=== PATIENT | male | born 1945 | race Caucasian/White ===

== ENCOUNTER 2021-07-12 09:08 | Outpatient (CLI) | payer MEDICARE, SELFPAY ==
--- NOTE | ~2021-07-12 | XR_ITS ---
EXAMINATION: XR abdomen/kub 1V INDICATION: Right flank pain TECHNIQUE: Supine views of the abdomen were obtained on 2 radiographs. COMPARISON: None FINDINGS: There is a 4 mm stone of the right kidney lower pole. Multiple stones are present in the lo wer pole of the left kidney. A 3 mm calcification projecting over the right sacrum could reflect athe rosclerosis versus ureteral stone. There are phleboliths in the pelvis. The visualized lung bases are clear. The bowel gas pattern is normal. 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 IMPRESSION: 1. Right pelvic calcification which could reflect calcified atherosclerosis versus right distal urete ral stone. 2. Bilateral nephrolithiasis. Reviewed, dictated and finalized at location A. IMPRESSION: 1. Right pelvic calcification which could reflect calcified atherosclerosis tania reshma right distal ureteral stone. 2. Bilateral nephrolithiasis.
== END 2021-07-12 09:09 | disposition home or self-care (01) ==
LOC: ANHIMG 09:21
PROVIDERS: Visit Provider Nurse Practitioner Adult Health
DX: R10.9 Unspecified abdominal pain (principal); N20.0 Calculus of kidney
CPT/HCPCS: 74018

== ENCOUNTER 2022-10-19 08:13 | Outpatient (CLI) | payer MEDICARE, SELFPAY ==
--- NOTE | ~2022-10-19 | XR_ITS ---
XR abdomen obstructive series DATE: 10/19/2022 08:32 INDICATION: Right-sided abdominal pain TECHNIQUE: Supine and upright AP views of the abdomen COMPARISON: 07/12/2021 supine AP views of the abdomen FINDINGS: Bilateral nephrolithiasis. No visceromegaly is evident. The psoas shadows are intact. No ev idence of bowel obstruction. Status post laminectomy and bilateral posterior surgical fusion with pedicle screws and rods at L3-L5 . Status post right total hip arthroplasty. 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 Osteopenia. IMPRESSION: Bilateral nephrolithiasis Reviewed, dictated and finalized at Location A. Reviewed, dictated and finalized at location B. 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
[2022-10-19 19:21] LABS: Hematocrit 48.3 % (42.0-52.0); Hemoglobin 15.6 g/dL (14.0-18.0); Mean Corpuscular HGB Conc 32.3 g/dl (32-36); Mean Corpuscular Hemoglobin 30.5 pg (26-34); Mean Corpuscular Volume 94.3 fl (80-100); Mean Platelet Volume 10.4 fl (7.4-10.4); Platelet Count Result 232 k/mm3 (150-375); Red Blood Count 5.12 M/mm3 (4.6-6.20); Red Cell Distribution Width 13.3 % (11.5-14.5); White Blood Count 6.7 K/mm3 (4.5-10.0)
[2022-10-19 20:11] LABS: Alanine Aminotransferase 37 U/L (6-50); Albumin Level 4.3 g/dL (3.5-5.1); Alkaline Phosphatase 61 U/L (38-126); Anion Gap 7 mmol/L (8-16); Aspartate Amino Transferase 58 U/L (17-59); Blood Urea Nitrogen 16 mg/dL (9-20); Calcium 8.8 mg/dL (8.4-10.2); Carbon Dioxide 31 mmol/L (22-30); Chloride 101 mmol/L (98-107); Cholesterol 178 mg/dL (0-200); Estimated Glomerular Filt Rate > 60; Glucose 94 mg/dL (65-110); HDL Direct 42 mg/dL; Potassium 4.1 mmol/L (3.4-5.0); Sodium 139 mmol/L (137-145); Triglycerides 88 mg/dL (<150)
[2022-10-19 20:22] LABS: LDL Cholesterol Direct 105 mg/dL
== END 2022-10-19 08:14 | disposition home or self-care (01) ==
LOC: ANHBWCIMG 08:18
PROVIDERS: PCP Family Medicine; Visit Provider Family Medicine
DX: N20.0 Calculus of kidney (principal); R10.9 Unspecified abdominal pain; K21.9 Gastro-esophageal reflux disease without esophagitis; E66.3 Overweight
CPT/HCPCS: 36415; 74019; 80053; 80061; 85027

== ENCOUNTER 2023-02-06 09:27 | Outpatient (CLI) | payer MEDICARE, SELFPAY ==
[2023-02-06 19:29] LABS: Alanine Aminotransferase 33 U/L (6-50); Albumin Level 4.5 g/dL (3.5-5.1); Alkaline Phosphatase 71 U/L (38-126); Aspartate Amino Transferase 56 U/L (17-59); Bilirubin,Total 0.7 mg/dL (0.2-1.3)
== END 2023-02-06 09:28 | disposition home or self-care (01) ==
PROVIDERS: PCP Family Medicine; Visit Provider Family Medicine
DX: B35.1 Tinea unguium (principal)
CPT/HCPCS: 36415; 80076

== ENCOUNTER 2023-10-29 10:36 | Outpatient (CLI) | payer MEDICARE, SELFPAY ==
[2023-10-29 19:44] LABS: Hematocrit 49.2 % (42.0-52.0); Hemoglobin 15.8 g/dL (14.0-18.0); Mean Corpuscular HGB Conc 32.1 g/dl (32-36); Mean Corpuscular Hemoglobin 29.9 pg (26-34); Mean Platelet Volume 10.6 fl (7.4-10.4); Platelet Count Result 217 k/mm3 (150-375); Red Blood Count 5.29 M/mm3 (4.6-6.20); Red Cell Distribution Width 13.2 % (11.5-14.5)
[2023-10-29 20:41] LABS: Alanine Aminotransferase 39 U/L (6-50); Albumin Level 4.3 g/dL (3.5-5.1); Alkaline Phosphatase 64 U/L (38-126); Anion Gap 8 mmol/L (8-16); Aspartate Amino Transferase 53 U/L (17-59); Bilirubin,Total 1.1 mg/dL (0.2-1.3); Blood Urea Nitrogen 14 mg/dL (9-20); Calcium 9.4 mg/dL (8.4-10.2); Carbon Dioxide 28 mmol/L (22-30); Chloride 103 mmol/L (98-107); Cholesterol 190 mg/dL (0-200); Estimated Glomerular Filt Rate > 60; Glucose 98 mg/dL (65-110); HDL Direct 45 mg/dL; Potassium 4.8 mmol/L (3.4-5.0); Sodium 139 mmol/L (137-145); Triglycerides 82 mg/dL (<150)
[2023-10-29 20:51] LABS: LDL Cholesterol Direct 119 mg/dL
== END 2023-10-29 10:37 | disposition home or self-care (01) ==
PROVIDERS: PCP Nurse Practitioner Adult Health; Visit Provider Family Medicine
DX: B35.1 Tinea unguium (principal); K21.9 Gastro-esophageal reflux disease without esophagitis; R10.9 Unspecified abdominal pain; R19.7 Diarrhea, unspecified; Z00.00 Encounter for general adult medical examination without abnormal findings; Z79.899 Other long term (current) drug therapy; B35.3 Tinea pedis
CPT/HCPCS: 36415; 80053; 80061; 85027

== ENCOUNTER 2024-04-21 10:24 | Outpatient (CLI) | payer MEDICARE, SELFPAY ==
[2024-04-21 18:49] LABS: Basophils Absolute Auto 0.1 K/mm3 (0.0-0.1); Eosinophils Absolute Auto 0.2 K/mm3 (0-0.3); Eosinophils Percent Auto 2.7 % (0-4.4); Hematocrit 51.7 % (42.0-52.0); Hemoglobin 16.7 g/dL (14.0-18.0); Immature Granulocyte Absolute 0.03 K/mm3 (0.00-0.031); Immature Granulocyte Percent A 0.4 % (0-0.5); Lymphocytes Percent Auto 26.5 % (18.3-44.2); Mean Corpuscular HGB Conc 32.3 g/dl (32-36); Mean Corpuscular Volume 92.8 fl (80-100); Mean Platelet Volume 10.3 fl (7.4-10.4); Monocytes Absolute Auto 0.5 K/mm3 (0.1-0.6); Monocytes Percent Auto 7.4 % (2.6-8.5); Neutrophils Absolute Auto 4.2 K/mm3 (1.3-6.7); Platelet Count Result 241 k/mm3 (150-375); Red Blood Count 5.57 M/mm3 (4.6-6.20); Red Cell Distribution Width 13.6 % (11.5-14.5); White Blood Count 6.8 K/mm3 (4.5-10.0)
[2024-04-21 19:02] LABS: Alanine Aminotransferase 35 U/L (6-50); Albumin Level 4.4 g/dL (3.5-5.1); Alkaline Phosphatase 64 U/L (38-126); Anion Gap 8 mmol/L (4-12); Aspartate Amino Transferase 73 U/L (17-59); Bilirubin,Total 1.1 mg/dL (0.2-1.3); Blood Urea Nitrogen 15 mg/dL (9-20); Calcium 9.4 mg/dL (8.4-10.2); Carbon Dioxide 27 mmol/L (22-30); Chloride 104 mmol/L (98-107); Estimated Glomerular Filt Rate > 60; Glucose 126 mg/dL (65-110); Sodium 139 mmol/L (137-145)
[2024-04-21 19:46] LABS: Prostate Specific Antigen 1.5 ng/mL (< OR = 4.0)
== END 2024-04-21 10:25 | disposition home or self-care (01) ==
LOC: ANHBWCLAB 10:26
PROVIDERS: PCP Family Medicine; Visit Provider Family Medicine
DX: K21.9 Gastro-esophageal reflux disease without esophagitis (principal); M19.90 Unspecified osteoarthritis, unspecified site; Z12.5 Encounter for screening for malignant neoplasm of prostate
CPT/HCPCS: 36415; 80053; 84153; 85025; G0103

== ENCOUNTER 2024-04-24 10:15 | Outpatient (CLI) | payer MEDICARE, SELFPAY ==
[2024-04-24 11:05] LABS: Alanine Aminotransferase 37 U/L (6-50); Albumin Level 4.3 g/dL (3.5-5.1); Alkaline Phosphatase 61 U/L (38-126); Aspartate Amino Transferase 37 U/L (17-59); Bilirubin,Total 1.1 mg/dL (0.2-1.3)
[2024-04-24 11:52] LABS: Hemoglobin A1C 5.1 % (<5.7)
== END 2024-04-24 10:16 | disposition home or self-care (01) ==
PROVIDERS: PCP Family Medicine; Visit Provider Family Medicine
DX: R73.9 Hyperglycemia, unspecified (principal); R74.01 Elevation of levels of liver transaminase levels
CPT/HCPCS: 36415; 80076; 83036

== ENCOUNTER 2024-06-17 15:15 | Outpatient (CLI) | payer MEDICARE, SELFPAY ==
[2024-06-17 19:34] LABS: Anion Gap 9 mmol/L (4-12); Blood Urea Nitrogen 17 mg/dL (9-20); Calcium 9.3 mg/dL (8.4-10.2); Carbon Dioxide 29 mmol/L (22-30); Chloride 100 mmol/L (98-107); Estimated Glomerular Filt Rate > 60; Glucose 103 mg/dL (65-110); Potassium 4.6 mmol/L (3.4-5.0); Sodium 138 mmol/L (137-145)
== END 2024-06-17 15:16 | disposition home or self-care (01) ==
PROVIDERS: PCP Nurse Practitioner Adult Health; Visit Provider Nurse Practitioner Adult Health
DX: E86.0 Dehydration (principal)
CPT/HCPCS: 36415; 80048

== ENCOUNTER 2024-07-28 12:00 | Outpatient (CLI) | payer MEDICARE, SELFPAY ==
[2024-07-28 19:11] LABS: Alanine Aminotransferase 46 U/L (6-50); Albumin Level 4.1 g/dL (3.5-5.1); Alkaline Phosphatase 64 U/L (38-126); Aspartate Amino Transferase 80 U/L (17-59); Bilirubin,Total 0.9 mg/dL (0.2-1.3)
== END 2024-07-28 12:01 | disposition home or self-care (01) ==
PROVIDERS: PCP Nurse Practitioner Adult Health; Visit Provider Family Medicine
DX: R74.01 Elevation of levels of liver transaminase levels (principal)
CPT/HCPCS: 36415; 80076

== ENCOUNTER 2024-08-05 07:45 | Outpatient (CLI) | payer MEDICARE, SELFPAY ==
--- NOTE | ~2024-08-05 | US_ITS ---
Limited Abdominal Sonogram: Real-time sonographic imaging of the right upper quadrant was performed. Clinical History: Elevated transaminase levels Findings: The liver appears echogenic, with no evidence of mass lesion or bile duct dilatation. Main portal vein demonstrates normal direction of flow. The gallbladder is partially distended, and appea rs normal with no evidence of gallstone or wall thickening. The common bile duct measures 4 mm. The visualized pancreas, aorta, and IVC are unremarkable. Large right upper pole renal cyst incidentally noted. Impression: Diffuse fatty infiltration of liver. Reviewed, dictated and finalized at location . Impression: Diffuse fatty infiltration of liver.
== END 2024-08-05 07:46 | disposition home or self-care (01) ==
LOC: MICIMG 07:47
PROVIDERS: PCP Family Medicine; Visit Provider Family Medicine
DX: R74.01 Elevation of levels of liver transaminase levels (principal); K76.0 Fatty (change of) liver, not elsewhere classified
CPT/HCPCS: 76705

== ENCOUNTER 2025-04-22 08:06 | Outpatient (CLI) | payer MEDICARE, SELFPAY ==
--- OUTSIDE RECORDS SUMMARY | 2025-04-22 08:16 | XMS_ITS | Encounter Summary ---
Author Organization [facility] Address [address] [facility] [place] [address] Phone Care Team Providers Care Cold Storage Worker Name Role Phone Kandis Alejandro MD Primary Care Provider Reason for Visit * Reason Onset Date Comments Medication Refill Medication Refill 06/25/2020 Encounter Details Date Type Department Care Team (Late st Contact Info) Description 06/21/2020 Refill [facility] - Primary Care - [place] [address] [place] [address] Kandis Alejandro MD [address] [place] [address] Medication Refill; Medication Refill Social History Tobacco Use Types Packs/Day Years Used Date Smoking Tobacco: Former Cigarettes Q uit: 02/04/1960 Smokeless Tobacco: Never Comments:Social smoker Alcohol Use Standard Drinks/Week Comments Yes 5 (1 standard drink = 0.6 oz pur e alcohol) wine every evening PHQ-2 Answer Date Recorded Total Score - Questions 1-9 0 05/13 Sex and Gender Information Value Date Recorded Sex Assigned at Not on file Legal Sex Male 11:00 PM CDT Gender Identity Not on file Sexual Orientation Not on file 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 No / Unsure 05/31/2020 11:14 AM CDT documented as of this encounter Miscellaneous Notes * Telephone Encounter - Karolina Harden RN - 06/25/2020 3:44 PM CDT Called patient- patient takes Sonata, not Ambien. Called [place] pharmacy to discontinue Ambien. Order for Sonata pended to you. * Telephone Encounter - Kandis Alejandro MD - 06/25/2020 3:15 PM CDT If patient is taking sonAta, discontinue Ambien. Please check with patient. * Telephone Encounter - Ananya Corona, LYUBOV - 06/25/2020 10:49 AM CDT Ambien CR is not on patient's formulary. Please send an alternative or try prior auth * Telephone Encounter - Renetta Perea - 06/23/2020 4:06 PM CDT Please review, Ambien was ordered however, I did not see it on the patients active medication list. I did see the patient was on Sonata I wasn't sure if this was a mistake. I went ahead and pended the Ambien please review and sign if appropriate. Thank you documented in this encounter Plan of Treatment Not on file documented as of this encounter Visit Diagnoses Diagnosis Insomnia, unspecified type documented in this encounter Additional Health Concerns Infection Onset Date Last Indicated Resolved Time COVID - 19 12/06/2021 12/07/2021 12/08/2021 9:00 AM CREDIT ADVISOR COVID - 19 Confirmed 12/07/2021 12/07/2021 022 12:16 AM CREDIT ADVISOR Assessment Noted Time PHQ-9 Depression Total Score: 0 05/31/20 20 11:00 AM CDT documented as of this encounter Care Teams Cold Storage Worker Relationship Specialty Start Date End Date Kandis Alejandro MD PCP - General Family Medicine 02/21/16 03/18/23 documented as of this encounter
--- OUTSIDE RECORDS SUMMARY | 2025-04-22 08:16 | XMS_ITS | Referral Summary ---
Author Organization [address] Address [address] [place] [id number] Care Team Providers Care Data Acquisition Technician Name Role Phone Terry Neri MD Primary Care Provider [phone] Allergies Active Allergy Reactions Criticality Noted Date Comments Oxycodone-Acetaminop hen Other (See comments) Medium Reaction: FEELS FUNNY, Medications zaleplon (SONATA) 5 mg capsule Take 1 capsule (5 mg total) by mouth nightly 9 Active multivitamin tablet Take 1 tablet by mouth Active fluticasone propionate (FLONASE) 50 mcg/actuation nasal spray Administer 2 sprays into affected nostril(s) daily [address] (NexIUM) 20 mg capsule Take 1 capsule (20 mg total) by mouth daily 9 Active aspirin-calcium carbonate 81 mg-300 mg calcium(777 mg) tablet Take 81 mg by mouth daily Active clindamycin (CLEOCIN T) 1 % external solution APPLY 2 DROPS DAILY TO PROCEDURE SITE 3 Active Active Problems Problem Noted Date Diagnosed Date IFG (impaired fasting glucose) 05/31/2020 Obesity (BMI 30.0-34.9) 03/18/2019 Longo's esophagus 03/03/2019 Erectile dysfunction 05/29/2017 Insomnia 05/29/2017 PVC's (premature ventricular contractions) 02/07 Gastroesophageal reflux disease with esophagitis 05/16/2016 Hiatal hernia 05/16/2016 Over weight 05/16/2016 Social History Tobacco Use Types Packs/Day Years Used Date Smoking Tobacco: Former Personal Safety Answer Date Recorded Getting School Help Needed Not on file 11/02 Sex and Gender Information Value Date Recorded Sex Assigned at Not on file Legal Sex 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 Gender Identity Not on file Sexual Orientation Not on file Last Filed Vital Signs Vital Sign Reading Time Taken Comments Blood Pressure 120/78 07/05/2023 5:48 PM CDT Pulse 88 07/05/2023 5:48 PM CDT Temperature 36.3 C (97.4 F) 07/05/2023 5:48 PM CDT Respiratory Rate 18 07/05/2023 5:48 PM CDT Oxygen Saturation 95% 07/05/2023 5:48 PM CDT Inhaled Oxygen Concentration - - Weight 90.7 kg (200 lb) 07/05/2023 5:48 PM CDT Height 177.8 cm (5' 10) 07/05/2023 5:48 PM CDT Body Mass Index 28.7 07/05/2023 5:48 PM CDT Plan of Treatment Not on file Insurance MEDICARE [facility] MEDICARE [facility] Care Teams Data Acquisition Technician Relationship Specialty Start Date End Date Terry Neri MD PCP - General Family Practice 07/05/23
--- OUTSIDE RECORDS SUMMARY | 2025-04-22 08:16 | XMS_ITS | Clinical Summary ---
Author Organization [address] Address [address] [place] [id number] Care Team Providers Care Shift Production Supervisor Name Role Phone Terry Neri MD Primary Care Provider [phone] Allergies Active Allergy Reactions Criticality Noted Date [...] on file Legal Sex Male 10:00 AM CAUSTIC OPERATOR Gender Identity Not on file Sexual Orientation Not on file Obstetrics History Last Filed Vital Signs Vital Sign Reading [...] 07/05/2023 5:48 PM CDT Plan of Treatment Health Maintenance Due Date Last Done Comments Depression Screening 1945 Fall Risk Assessment 1945 Hepatitis B Screening 1962 Well Visit 65+ 2009 DTaP/Tdap/Td Vaccine (2 - Td or Tdap) 07/13/202111/2010 Influenza Vaccine (Season Ended) 2025 12/16/19 20, 09/12/2009 Pneumococcal vaccine 65+ Completed 05/29/2017, 03/13 Zoster Vaccine Completed 04/15/2020, 12/16/2019 Insurance MEDICARE [facility] MEDICARE [facility] Care Teams Shift Production Supervisor Relationship Specialty Start Date End Date Terry Neri MD PCP - General Family Practice 07/05/23
--- OUTSIDE RECORDS SUMMARY | 2025-04-22 08:16 | XMS_ITS | Clinical Summary ---
Author Organization [facility] Address [address], [address] [address] Phone Care Team Providers Care Snag Grinder Name Role Phone Unavailable Primary Care Provider Unavailabl e Allergies Active Allergy Reactions Criticality Noted Date Comments Oxycodone-Acetaminop hen Other (see Comments) Medium FEELS FUNNY, anxiety Medications Aspirin 81 MG Tablet Take 81 mg by mouth daily. Active Multiple Vitamin (MULTI-VITAMIN) Tablet Take 1 Tab by mouth. Active Probiotic Product (PROBIOTIC COLON SUPPORT PO) Take 1 Tab by mouth daily. Active esomeprazole (NEXIUM) 20 MG CAPSULE DELAYED RELEASEIndicatio ns:Gastroesophag eal reflux disease with esophagitis Take 1 Cap by mouth daily. 90 Cap 1 03/18/2019 Active Doxylamine Succinate, Sleep, (UNISOM PO) Take by mouth. Active zaleplon (SONATA) 5 MG Capsule Take 5 mg by mouth nightly as needed. Active Active Problems Problem Noted Date Diagnosed Date Bilateral nephrolithiasis 06/07/2021 Intermittent diarrhea 06/07/2021 Polyp of colon 03/08/2021 IFG (impaired fasting glucose) 05/31/2020 Obesity (BMI 30.0-34.9) 03/18/2019 Insomnia 05/29/2017 Erectile dysfunction 05/29/2017 PVC's (premature ventricular contractions) 02/07 Gastroesophageal reflux disease with esophagitis 05/16/2016 Hiatal hernia 05/16/2016 Longo's esophagus Resolved Problems Problem Noted Date Diagnosed Date Resolved Date Fatigue 02/07/2017 03/19/2018 Immunizations Immunization Administration Dates Next Due Covid-19, Mrna, Lnp-s, Pf, 30 Mcg/0.3 Ml Dose (Parul boswell) 02/01/2021,01/11/2021 Influenza Vaccine 09/12/2009 Influenza Vaccine, MDCK,quadrivalent, pres free 12/16/2019 Pneumococcal Vaccine - 13 Valent 05/29/2017 Pneumococcal Vaccine Adult - 23 Valent 1 Pneumococcal Vaccine, Unspecified Formulation TDAP Vaccine 07/13/2011 Zoster Vaccine Recombinant 04/15/2020,12/16/2019 Family History Medical History Relation Name Comments Cancer Father bone Diabetes Mother Hypertension Mother Osteoarthritis Mother Relation Name Status Comments Father Mother Social History Tobacco Use Types Packs/Day Years Used Date Smoking Tobacco: Former Cigarettes Q uit: 02/04/1960 Smokeless Tobacco: Current Tobacco Cessation:Ready to Q uit: No; Counseling Given: No Comments:Pt states he chews on a cigar but doesnt smoke, Similar to Chew tobacco Alcohol Use Standard Drinks/Week Comments Yes 5 (1 standard drink = 0.6 oz pur e alcohol) wine every evening PHQ-2 Answer Date Recorded Total Score - Questions 1-9 0 05/13 Sexually Active Control Partners Comments Yes Sex and Gender Information Value Date Recorded Sex Assigned at Not on file Legal Sex Male 11:00 PM CDT Gender Identity Not on file Sexual Orientation Not on file 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 Not on file Not on file Last Filed Vital Signs Vital Sign Reading Time Taken Comments Blood Pressure 120/60 06/06/2022 8:28 AM CDT Pulse 65 06/06/2022 8:28 AM CDT Temperature 36.2 C (97.2 F) 06/06/2022 8:28 AM CDT Respiratory Rate 18 06/06/2022 8:28 AM CDT Oxygen Saturation 97% 06/06/2022 8:28 AM CDT Inhaled Oxygen Concentration - - Weight 96.2 kg (212 lb) 06/06/2022 8:28 AM CDT Height 177.8 cm (5' 10) 06/06/2022 8:28 AM CDT Body Mass Index 30.42 06/06/2022 8:28 AM CDT Plan of Treatment Health Maintenance Due Date Last Done Comments Hepatitis C Virus (HCV) Screening 1945 Cologuard 1989 Immunochemical Fecal Occult Blood 1989 Respiratory Syncytial Virus (RSV) Immunization (Adult) (1 - 1-dose 75+ series) 2019 Td Immunization Every 10 Years (Adults With 1 Tdap) 07/13/2021 07/13/2011 SARS-COV-2 Immunization ( season) 2024 05/25/2022, 08/16/2021, 02/01/2021, Additional history exists Influenza Immunization (Season Ended) 2025 12/16/2019, 09/12/2009 Colonoscopy 02/07/2026 02/08/2016, 11/23/2009 Colorectal Cancer Screening 02/07/2026 Pneumococcal Immunization (50+ years) Completed 05/29/2017, 04/04/2011, 03/12/2011 Pneumococcal Immunization Combined Discontinued 05/29/2017, 04/04/2011, 03/12/2011 Zoster Immunization Completed 04/15/2020, 0 Hepatitis B Immunization Aged Out No longer eligible based on patient's age to complete this topic Human Papillomavirus (HPV) Immunization Aged Out No longer eligible based on patient's age to complete this topic Meningococcal Immunization (ACWY) Aged Out No longer eligible based on patient's age to complete this topic Rotavirus Immunization Aged Out No lo nger eligible based on patient's age to complete this topic Procedures Procedure Name Priority Date/Time Associated Diagnosis Comments COLONOSCOPY Routine 11/23/2009 from Last 3 Months or Most Recently Relevant to Health Maintenance Results * COLONOSCOPY (11/23/2009) us Duong Eduardo MD PROCEDURE/MINOR SURGICAL ORDE KIRBY Final Result from Last 3 Months or Most Recently Relevant to Health Maintenance Insurance MEDICARE [facility]
--- OUTSIDE RECORDS SUMMARY | 2025-04-22 08:16 | XMS_ITS | Clinical Summary ---
Author Organization [facility]To Address [address] [place] [address] Care Team Providers Care Air Brake Operator Name Role Phone Unavailable Primary Care Provider Unavailabl e Source Comments [facility],non-owned Affiliates and Associated Physician Practices is amultiple site organization consisting of ambulatory clinics and hospital sitesin [place], [place], [place] and [place]. This disclosure is being madepursuant to the Care Everywhere program and may not contain all information available regarding this patient. Last updated 18.[facility] Allergies No known active allergies Medications * Be aware that medications may not be up to date on this document. Alwaysverify current medications with the patient. aspirin (ASPIRIN LOW DOSE) 81 MG tablet Take 81 mg by mouth once daily Active esomeprazole (NEXIUM) 20 MG capsule Take 20 mg by mouth once daily Active Wheat Dextrin (BENEFIBER) powder Take by mouth once daily Active Multiple Vitamin (MULTI-VITAMIN) TABS Take 1 tablet by mouth Active Active Problems Problem Noted Date Diagnosed Date Longo's esophagus 03/03/2019 Erectile dysfunction 05/29/2017 Insomnia 05/29/2017 PVC's (premature ventricular contractions) 02/07 Gastroesophageal reflux disease with esophagitis 05/16/2016 Hiatal hernia 05/16/2016 Over weight 05/16/2016 Social History Tobacco Use Types Packs/Day Years Used Date Smoking Tobacco: Never Assessed Sex and Gender Information Value Date Recorded Sex Assigned at Not on file Legal Sex Male 7:14 PM CDT Gender Identity Not on file Sexual Orientation Not on file Last Filed Vital Signs Vital Sign Reading Time Taken Comments Blood Pressure 118/74 03/03/2019 2:25 PM CDT Pulse 86 03/03/2019 2:25 PM CDT Temperature 36.7 C (98 F) 03/03/2019 2:25 PM CDT Respiratory Rate 18 03/03/2019 2:25 PM CDT Oxygen Saturation 94% 03/03/2019 2:25 PM CDT Inhaled Oxygen Concentration - - Weight 90.7 kg (200 lb) 03/03/2019 2:25 PM CDT Height 179.1 cm (5' 10.5) 03/03/2019 2:25 PM CD T Body Mass Index 28.29 03/03/2019 2:25 PM CDT Plan of Treatment Health Maintenance Due Date Last Done Comments DTAP/TDAP/TD VACCINES (1 - Tdap) 1963 PNEUMOCOCCAL VACCINE 50+ (1 of 1 - PCV) 1994 ZOSTER VACCINE (1 of 2) 1994 Respiratory Syncytial Virus (RSV) Vaccine Pt: or over 60 yrs (1 - 1-dose 75+ series) 2019 COVID-19 VACCINE ( - 2023-2 5 season) 2024 DEPRESSION SCREENING 11/12/2024 INFLUENZA VACCINE (Season Ended) 2025 09/12/20 09 HEPATITIS B VACCINE Aged Out No longe r eligible based on patient's age to complete this topic HIB VACCINE Aged Out No longer eligi ble based on patient's age to complete this topic HPV VACCINE Aged Out No longer eligi ble based on patient's age to complete this topic MENINGOCOCCAL (Group B) VACC INE SHARED DECISION-MAKING Aged Out No longer eligibl e based on patient's age to complete this topic MENINGOCOCCAL GROUPS A/C/Y/W VACCINE Aged Out No longer eligible b ased on patient's age to complete this topic Insurance MEDICARE [facility] MEDICARE [facility] [employer]
[2025-04-22 09:00] LABS: Hematocrit 48.2 % (42.0-52.0); Hemoglobin 15.9 g/dL (14.0-18.0); Mean Corpuscular Volume 90.9 fl (80-100); Mean Platelet Volume 9.9 fl (7.4-10.4); Platelet Count Result 223 k/mm3 (150-375); Red Cell Distribution Width 13.2 % (11.5-14.5); White Blood Count 7.3 K/mm3 (4.5-10.0)
[2025-04-22 09:17] LABS: Alanine Aminotransferase 40 U/L (6-50); Albumin Level 4.2 g/dL (3.5-5.1); Alkaline Phosphatase 64 U/L (38-126); Aspartate Amino Transferase 43 U/L (17-59); Bilirubin,Total 0.9 mg/dL (0.2-1.3); Cholesterol 187 mg/dL (0-200); HDL Direct 49 mg/dL; Triglycerides 89 mg/dL (<150)
[2025-04-22 09:27] LABS: LDL Cholesterol Direct 107 mg/dL
[2025-04-22 09:55] LABS: Vitamin D 25 Hydroxy 35.8 ng/mL
== END 2025-04-22 08:07 | disposition home or self-care (01) ==
PROVIDERS: PCP Family Medicine; Visit Provider Family Medicine
DX: R74.01 Elevation of levels of liver transaminase levels (principal); Z79.899 Other long term (current) drug therapy; K21.9 Gastro-esophageal reflux disease without esophagitis; Z00.00 Encounter for general adult medical examination without abnormal findings; R63.5 Abnormal weight gain
CPT/HCPCS: 36415; 80061; 80076; 82306; 82607; 84443; 85027

== ENCOUNTER 2025-05-19 04:02 | Inpatient (IN) | payer MEDICARE, SELFPAY ==
[2025-05-19] VITALS (48 sets, daily range): BP systolic 132–204; BP diastolic 70–98; PULSE 50–78; RESP 15–23; TEMP 36.6–38.1; O2SAT 93–98; BMI 30.6
--- NOTE | 2025-05-19 | ECHO_ITS ---
Patient Info Name: Harry Pathak Age: 80 years : 1945 Gender: Male Ht: 70 in Wt: 213 lbs BSA: 2.21 m2 HR: 58 bpm BP: 132 / 76 mmHg Heart Rhythm: Sinus Rhythm Technical Quality: Fair Exam Date: 05/19/2025 3:19 PM Patient Status: I Admit Date: 05/19/2025 Exam Type: CA echo dop color flow w con Complete two-dimensional, color flow and Doppler transthoracic echocardiogram is performed with contrast to opacify the left ventricle and to improve the deliniation of the left ventricle endocardial borders. Staff Referring Physician: Samantha Kelly Solar Systems Designer: Jen Marks Attending Provider: Eddie Dan Contrast/Agitated Saline Contrast/Ag. Saline: Definity Amount: 3.00 ml Administered By: Jen Marks Existing IV Access: Yes IV Access Condition: patent with no signs of infiltration Summary 1. Definity contrast administered improved wall motion interpretation. 2. Left ventricular chamber dimension is normal. 3. Left ventricular systolic function is normal, estimated at 60-65. 4. There is mild concentric increased left ventricular wall thickness. 5. The left ventricular diastolic function is grade I diastolic dysfunction. 6. E/e' 12 is mildly elevated. 7. Left atrial chamber dimension is mildly enlarged. 8. There is mild aortic valve sclerosis. 9. There is mild tricuspid valve regurgitation. 10. No pulmonary hypertension, estimated pulmonary arterial systolic pressure is 38 mmHg. 11. There is trace pulmonic regurgitation. Left Ventricle E/e' 12 is mildly elevated. Left ventricular chamber dimension is normal. Left ventricular systolic function is normal, estimated at 60-65. There is mild concentric increased left ventricular wall thickness. The left ventricular diastolic function is grade I diastolic dysfunction. Definity contrast administered improved wall motion interpretation. Right Ventricle Right ventricular chamber dimension is normal. Right ventricular systolic function is normal and with normal TAPSE 2.0 cm. Left Atria Left atrial chamber dimension is mildly enlarged. Right Atria Right atrial chamber dimension is normal. Aortic Valve The aortic valve is trileaflet. There is mild aortic valve sclerosis. There is no aortic valve stenosis. There is no aortic valve regurgitation. Pulmonic Valve There is trace pulmonic regurgitation. Mitral Valve There is no mitral valve stenosis. There is no mitral valve regurgitation. Tricuspid Valve There is mild tricuspid valve regurgitation. No pulmonary hypertension, estimated pulmonary arterial systolic pressure is 38 mmHg. Pericardium/Pleural There is no pericardial effusion. Inferior Vena Cava Normal inferior vena cava with >50% collapse upon inspiration consistent with normal right atrial pressure, 5 mmHg. Aorta The aortic root size at the sinus of Valsalva is normal. Left Ventricular Outflow Tract Name Value Normal LVOT 2D LVOT Diameter 2.0 cm LVOT Doppler LVOT Peak Velocity 127 cm/s LVOT Peak Gradient 6 mmHg LVOT Mean Gradient 3 mmHg LVOT VTI 25 cm LVOT VTI/AV VTI Ratio 0.8 LVOT Stroke Volume 76 ml LVOT CO 4.3 l/min LVOT CI 1.9 l/min/m2 Pulmonic Valve Name Value Normal RVOT Doppler RVOT Peak Velocity 77 cm/s RVOT Peak Gradient 2 mmHg PV Doppler PV Peak Velocity 119 cm/s PV Peak Gradient 6 mmHg Mitral Valve Name Value Normal MV Diastolic Function MV E Peak Velocity 80 cm/s MV A Peak Velocity 95 cm/s MV E/A 0.8 MV Decel Time (PW) 171 ms MV Annular TDI MV E/e' (Septal) 13.4 MV E/e' (Lateral) 10.9 MV E/e' (Average) 12.1 Tricuspid Valve Name Value Normal TV Regurgitation Doppler TR Peak Velocity 287 cm/s TR Peak Gradient 28 mmHg Estimated PAP/RSVP RA Pressure 5 mmHg <=5 PA Systolic Pressure 38 mmHg <36 RV Systolic Pressure 38 mmHg <36 TV Annular TDI TV Lateral Cathryn s' Velocity 14.9 cm/s >=9.5 Aortic Valve Name Value Normal AV Doppler AV Peak Velocity 169 cm/s AV Peak Gradient 11 mmHg AV Mean Gradient 5 mmHg AV VTI 31 cm AV Area (Cont Eq VTI) 2.5 cm2 >=3.0 AV Area (Cont Eq Pino) 2.3 cm2 AV DI (Pino) 0.75 AV Regurgitation 2D LVOT Area 3.0 cm2 Ventricles Name Value Normal LV Dimensions 2D/MM IVS Diastolic Thickness (2D) 1.0 cm 0.6-1.0 LVID Diastole (2D) 4.5 cm 4.2-5.8 LVIW Diastolic Thickness (2D) 1.0 cm 0.6-1.0 LVID Systole (2D) 2.6 cm 2.5-4.0 LVOT Diameter 2.0 cm LV Mass (2D Cubed) 154.01 g 88.00-224.00 LV Mass Index (2D Cubed) 70 g/m2 49-115 Relative Wall Thickness (2D) 0.43 <=0.42 LV Fractional Shortening/Ejection Fraction 2D/MM LV Fractional Shortening (2D) 43 % 25-43 LV EF (2D Teichholz) 75 % LV Diastolic Volume (4C MOD) 54 ml LV EF (4C MOD) 64 % LV Diastolic Volume (2C MOD) 67 ml LV EF (2C MOD) 72 % LV Diastolic Volume (BP MOD) 62 ml 62-150 LV Diastolic Volume Index (BP MOD) 28 ml/m2 34-74 LV Systolic Volume (BP MOD) 19 ml 21-61 LV Systolic Volume Index (BP MOD) 9 ml/m2 11-31 LV EF (BP MOD) 69 % 52-72 LV Diastolic Length (4C) 7.6 cm LV Systolic Length (4C) 6.2 cm LV Stroke Volume (4C MOD) 35 ml Atria Name Value Normal LA Dimensions LA Volume (4C A-L) 78 ml LA Volume (BP A-L) 81 ml RA Dimensions RA Area (4C) 16.6 cm2 <=18.0 Report Signatures
--- NOTE | ~2025-05-19 | US_ITS ---
EXAM: ABDOMEN ULTRASOUND HISTORY: hyperbilirubinemia COMPARISON: Reference is made with a CT examination of the abdomen and pelvis performed approximately 2 hours earlier as well as 05/20/2025. FINDINGS: LIVER: The liver is increased in echogenicity and unremarkable in size. The contour of the liver surface is smooth. The portal vein is patent, demonstrating hepatopedal flow. GALLBLADDER: Layering sludge within the gallbladder which demonstrates thickened nsasar and surroundin g inflammatory change. No sonographic Hamlin sign was elicited by the geospatial technologist (although 2 mg of morphine was given approximately 1 hour prior). BILE DUCTS: Common bile duct measures 6.6mm. PANCREAS: Limited evaluation of the pancreas secondary to overlying bowel gas VASCULATURE : The visualized portion of the abdominal aorta is nonaneurysmal. The IVC is patent. IMPRESSION: Layering sludge within the gallbladder which demonstrates thickened nassar and surrounding inflammator y change within the liver, consistent with patient's recent CT examination. No common bile duct dilatation is appreciated. While abnormal, it is not likely that these findings in and of themselves would lead to hyperbilirubi nemia. Sporadic elevations in transaminases have been identified in this patient within the last year, witho ut elevation in bilirubin. Reviewed, dictated and finalized at location A. IMPRESSION: Layering sludge within the gallbladder which demonstrates thickened nassar and s urrounding inflammatory change within the liver, consistent with patient's rece nt CT examination. No common bile duct dilatation is appreciated. While abnormal, it is not likely that these findings in and of themselves would lead to hyperbilirubinemia. Sporadic elevations in transaminases have been identified in this patient withi n the last year, without elevation in bilirubin.
--- NOTE | ~2025-05-19 | XR_ITS ---
Portable chest x-ray Comparison: None Clinical History: Chest pain Findings: Lungs are clear, without focal consolidation or pleural effusion. Cardiomediastinal silho uette is unremarkable. Bones and soft tissues are unremarkable. Impression: Clear lungs. Reviewed, dictated and finalized at location M. Impression: Clear lungs.
--- NOTE | ~2025-05-19 | CT_ITS ---
CLINICAL INDICATION: Abdominal pain and leukocytosis with hyperbilirubinemia COMPARISON: 05/20/2025. TECHNIQUE: Multiple contiguous axial images of the abdomen and pelvis were performed without the admi nistration of intravenous contrast The dose-length product (DLP) was 322.21 mGy-cm. Automated exposure control and iterative reconstruction technique were employed. FINDINGS/OBSERVATIONS: Visualized lower thorax: Trace bibasilar atelectasis. The remainder of the bilateral lung bases are clear The heart is borderline enlarged, without pericardial effusion. Calcified lymph nodes within the mediastinum suggesting prior granulomatous disease. Moderate hiatal hernia is present, increased in size compared with previous days examination. Liver: The liver demonstrates homogeneously decreased in attenuation (consistent with fatty infiltration) an d is not enlarged. Gallbladder and biliary system: The gallbladder is distended, demonstrating surrounding inflammatory change (although the epicenter o f the inflammation may be the hepatic flexure of the colon). No significant mural thickening is ident ified within the colon to suggest inflammation. Pancreas: Limited evaluation of the pancreas secondary to the lack of intravenous contrast. Spleen: Punctate calcifications identified within the splenic parenchyma, suggesting prior granulomat ous disease. The remainder of the spleen demonstrates otherwise homogeneous attenuation and is not enlarged. Multiple splenules are identified within the abdomen. Kidneys: Multiple stones are identified within the bilateral kidneys. The largest on the right measures 6 mm, located within the lower pole. The largest on the left measures 10 mm, also located within the lower pole. No hydronephrosis is appreciated. Bilateral rounded foci of fluid attenuation within the bilateral kidneys: Exophytic from the upper pole on the right measuring 7.6 x 7.0 x 0.3 cm; Exophytic from the lower pole on the left measuring 5.3 x 6.0 x 6.3 cm, consistent with simple cysts for which no further follow-up is needed. The remainder of the bilateral kidneys are otherwise unremarkable, and without hydronephrosis. Adrenal glands: Unremarkable. Gastrointestinal tract: Rectosigmoid diverticulosis without surrounding inflammatory change. Inflammatory change surrounds the hepatic flexure of the colon, an interval change from previous days examination, although without significant mural thickening. Symmetric mural thickening within the entirety of the stomach, likely secondary to decompression. No significant perigastric inflammatory change is appreciated on the current study. Appendix: The appendix is not definitively visualized. However, no pericecal inflammatory change is identified suggest the presence of acute appendicitis. Vasculature: Densely calcified atherosclerotic disease. Lymph nodes: Limited evaluation without intravenous contrast. Pelvic structures: The bladder is only minimally distended, and otherwise unremarkable. The prostate gland is not enlarged. Body wall and musculoskeletal: Small fat-containing umbilical hernia. Posterior fixation within the lower lumbar spine. Otherwise, age-appropriate degenerative disease within the lower thoracic and lumbosacral spines. IMPRESSION: Bilateral nonobstructing renal calculi. Gallbladder distention with surrounding inflammatory change adjacent to the hepatic flexure of the co anthony without mural thickening of the colon. Given this patient's normal alkaline phosphatase, discrete gallbladder pathology is unlikely. Hyperbilirubinemia and leukocytosis are of unknown etiology, based on today's examination. Simple cyst within the bilateral kidneys for which no further follow-up is needed. The mural thickening of the distal stomach and proximal duodenum is less prominent on today's study, likely secondary to gastric compression. Follow-up with gallbladder ultrasound may be of some benefit in order to confirm the CT findings and correlate it with this patient's history. Reviewed, dictated and finalized at location A. IMPRESSION: Bilateral nonobstructing renal calculi. Gallbladder distention with surrounding inflammatory change adjacent to the hep atic flexure of the colon without mural thickening of the colon. Given this patient's normal alkaline phosphatase, discrete gallbladder patholog y is unlikely. Hyperbilirubinemia and leukocytosis are of unknown etiology, based on today's e xamination. Simple cyst within the bilateral kidneys for which no further follow-up is need ed. The mural thickening of the distal stomach and proximal duodenum is less promin ent on today's study, likely secondary to gastric compression. Follow-up with gallbladder ultrasound may be of some benefit in order to confir m the CT findings and correlate it with this patient's history.
--- NOTE | ~2025-05-19 | CT_ITS ---
EXAM: CT chest abdomen pelvis w con - 05/20/2025 8:20 CDT HISTORY: 80 years old Male with epigastric pain TECHNIQUE: Multidetector CT of the chest, abdomen and pelvis was performed with intravenous contrast Coronal and sagittal reformats were also provided for review. Automatic exposure control was used for this study. CONTRAST: 100 cc of Optiray 350 was used for this study COMPARISON: None available FINDINGS: CHEST: VISUALIZED LOWER NECK: Thyroid gland appears normal. No supraclavicular lymphadenopathy. AIRWAYS: Patent centrally. LUNGS and PLEURA: No evidence of consolidation/pulmonary contusion. No pneumothorax. Bibasilar depend ent changes. MEDIASTINUM and JOHN: No evidence of mediastinal hematoma. No lymphadenopathy. HEART AND PERICARDIUM: Heart is normal in size. No pericardial effusion. CHEST WALL: No axillary lymphadenopathy. Chest wall appears normal. VASCULATURE: Thoracic aorta and pulmonary arteries are normal in caliber. ABDOMEN and PELVIS: LIVER: Mild hepatic steatosis. GALLBLADDER: No calcified gallstones. BILE DUCTS: Normal caliber. SPLEEN: Within normal limits. PANCREAS: Within normal limits. ADRENAL GLANDS: Within normal limits. KIDNEYS and URETERS: No hydronephrosis or hydroureter. No evidence for nephroureterolithiasis. Bilate ral renal cysts. URINARY BLADDER: Within normal limits. STOMACH and BOWEL: Moderate sized hiatal hernia. Diffuse wall thickening and mucosal hyperenhancement of the distal stomach and proximal duodenum. Findings are concerning for gastroduodenitis. REPRODUCTIVE ORGANS: Within normal limits. MESENTERY/PERITONEAL CAVITY: No free fluid or pneumoperitoneum. LYMPH NODES: No abdominal or pelvic lymphadenopathy. ABDOMINAL WALL: Within normal limits. VASCULATURE: Within normal limits. MUSCULOSKELETAL, THORACIC AND LUMBAR SPINE: Multilevel degenerative changes of the spine. Status post posterior spinal fusion and right hip arthroplasty. Intact hardware and no loosening. IMPRESSION: Diffuse wall thickening and mucosal hyperenhancement of the distal stomach and proximal duodenum. Fin dings are concerning for gastroduodenitis. Possible malignancy cannot be excluded. Reviewed, dictated and finalized at location A. IMPRESSION: Diffuse wall thickening and mucosal hyperenhancement of the distal stomach and proximal duodenum. Findings are concerning for gastroduodenitis. Possible malig eden cannot be excluded.
--- NOTE | 2025-05-19 04:03 | ECG_ITS ---
Test Date: 2025-05-19 04:10:42 Measurements Intervals [place] Rate: 50 P: -18 ME: 199 QRS: -1 QRSD: 103 T: 37 QT: 418 QTc: 383 Interpretive Statements SINUS BRADYCARDIA OTHERWISE NORMAL ECG No previous ECG available for comparison Electronically Signed On 05-20-2025 07:21:46 CDT by Duong Gallegos M.D.
--- OUTSIDE RECORDS SUMMARY | 2025-05-19 04:04 | XMS_ITS | Continuity of Care Document ---
Author Organization [facility] Address [address] [place] [address] Phone Care Team Providers Care Health Education Director Name Role Phone Gareth MAHAJAN, Chantal Unavailable Unavailable Allergies, Adverse Reactions, Alerts Substance Reaction Status Criticality No Known Allergies Active No Inform ation Medications Medication Instructions Dosage Effective Dates (start - stop) Status Comments multivitamin capsule - Activ e NEXIUM (unknown strength) take 1 capsule by oral route every day at least 1 hour before a meal swallowing whole. Do not crush or chew granules. Not Available - Active ASPIRIN (unknown strength) take 1 tablet by oral route every day Not Available - Active Procedures Procedure Date Visual Field Examination(s) Office/outpatient Visit, New Advance Directives Directive Yes / No Effective Date File Name No Information Encounters Encounter Description Practice Location Reason(s) For Visit Diagnoses Date Provider Providers Copied on Encounter Office/outpat ient Visit, [facility], [address], [place], [place], [id number], [place] tel:[phone] SEC Roger HANSEN Professional Complete Exam (chief complaint) Retinal detachment , right 7 Gareth Cornejo. [address] [place], [address], [place]. tel:[phone] Referring Provider: Chantal Servin, [address] [place], [address]. tel:[phone] Family History Family Member Type Diagnosis Age At Onset Mother Problem (finding) Diabetes mellitus Payers Payer name Insurance type Covered alliance party ID Authorlit patel(s) [place] [id number] [facility] [id number] Social History Type Description Quantity Date Captured Comments Alcohol Use Details wine 1 glass daily Caffeine Use Details 2 cups per day Tobacco Use Status No Information Smoking Status Never smoker Non-Smoking Tobacco Use Details : No Details Available : No Details Available Sex Male Chief Complaint And Reason For Visit From encounter dated '02/05/2017 09:00'. Complete Exam (chief complaint). Description: The 71 year old male presents for Complete Exam in the right eye and left eye. Pt reports he has trouble seeing to his right x 3 weeks now. Pt reports hewent to [facility] and they told him to come here. Pt reports no pain, irritation, or discomfort OU. Pt reports he doesn't use any gtts. Reason For Referral Reason For Referral No Information Plan Of Treatment Date Type Action Status Referral Referred To: JOHN TARIQ [address] [place] [address], [id number] [phone] Ordered: Referrals: Ophthalmology. JOHN TARIQ. Evaluate and treat ordered History Of Present Illness Encounter Date Complaint History Of Prese nt Illness Complete Exam The 71 year old male presents for Complete Exam in the right eye and left eye. Pt reports he has trouble seeing to his right x 3 weeks now. Pt reports he went to [facility] and they told him to come here. Pt reports no pain, irritation, or discomfort OU. Pt reports he doesn't use any gtts. Functional Status Date Functional Assessmen t No Information Instructions Date Instruction Additional Infor ronaldion Retinal detachment, right - Educational material provided Related to Retinal detachment, right Impression/Plan - Kelton brito on retinal detachment OD. No holes or tears noted on exam. Pt denies history of DM or injury. Discussed diagnosis in detail with patient. Refer pt to [facility], appt scheduled today . Pt last ate at 7:30 today, told pt not to eat anything else until he sees [facility]. Related to Retinal detachment, right Assessments Type Assessment Date assessment Retinal detachment, right impression Retinal detachment, right: H33.2 1 Patient Care Teams Name Effective Dates (start - stop) Status Members No Information
--- OUTSIDE RECORDS SUMMARY | 2025-05-19 04:04 | XMS_ITS | Encounter Summary ---
Author Organization [facility] Address [address] [facility] [place] [address] Phone Care Team Providers Care Instructional Consultant Name Role Phone Kandis Alejandro MD Primary Care Provider Reason for Visit * Reason Onset Date Comments Medication Refill Medication Refill 06/25/2020 Encounter Details Date Type Department Care Team (Late st Contact Info) Description 06/21/2020 Refill [facility] - Primary Care - [address] [place] [address] Kandis Alejandro MD [address] [place] [address] Medication Refill; Medication Refill Social [...] patient- patient takes Sonata, not Ambien. Called [facility] to discontinue Ambien. Order for Sonata [...] - 19 12/06/2021 12/07/2021 12/08/2021 9:00 AM DOOR TO DOOR LEAD GENERATION COVID - 19 Confirmed 12/07/2021 12/07/2021 022 12:16 AM DOOR TO DOOR LEAD GENERATION Assessment Noted Time PHQ-9 Depression Total Score: 0 05/31/20 20 11:00 AM CDT documented as of this encounter Care Teams Instructional Consultant Relationship Specialty Start Date End Date Kandis Alejandro MD PCP - General Family Medicine 02/21/16 03/18/23 documented as of this encounter
--- OUTSIDE RECORDS SUMMARY | 2025-05-19 04:04 | XMS_ITS | Clinical Summary ---
Author Organization [facility] Address [address], [address] [address] Phone Care Team Providers Care Garment Folder Name Role Phone Unavailable Primary Care Provider [...] 08/16/2021, 02/01/2021, Additional history exists Influenza Immunization (#1) 2025 12/16/2019, 1 11/12/2008 Colonoscopy 02/07/2026 02/08/2016, 11/23/2009 Colorectal Cancer Screening [...] to Health Maintenance Results * COLONOSCOPY (11/23/2009) Duong Eduardo MD PROCEDURE/MINOR SURGICAL ORDE KIRBY Final Result from Last 3 Months or Most Recently Relevant to Health Maintenance Insurance MEDICARE [facility]
--- OUTSIDE RECORDS SUMMARY | 2025-05-19 04:04 | XMS_ITS | Clinical Summary ---
Author Organization [email or web address] Address [address] [place] [address] Care Team Providers Care Electronic Calibration Technician Name Role Phone Unavailable Primary Care Provider Unavailabl e Source Comments [email or web address],non-owned Affiliates and Associated Physician Practices is amultiple site organization consisting of ambulatory clinics and hospital sitesin [place], [place], [place] and [place]. This disclosure is being madepursuant to the Care Everywhere program and may not contain all information available regarding this patient. Last updated 18.[email or web address] Allergies No known active allergies Medications * [...] season) 2024 DEPRESSION SCREENING 11/12/2024 INFLUENZA VACCINE (#1) 2025 09/12/2009 HEPATITIS B VACCINE Aged Out No longe [...]
[2025-05-19] MEDS: ASPIRIN 81 MG CHEWABLE TABLET 324 MG PO (04:24)
--- NOTE | 2025-05-19 04:25 | ED.CHESTPAIN ---
HPI - Chest Pain General Chief Complaint: Chest Pain <Samantha Kelly MD - Last Filed: 05/20/25 01:29> Stated Complaint: chest pain <Samantha Kelly MD - Last Filed: 05/20/25 01:29> Time Seen by Provider: 05/19/25 04:05 <Samantha Kelly MD - Last Filed: 05/20/25 01:29> History of Present Illness HPI narrative: Patient is a 1-year-old male who presents to the emergency department this morning complaining of substernal chest pain and generalized weakness/fatigue. Patient states that he fell asleep yesterday on the couch watching TV which he normally does not do. He ended up moving to the bedroom and woke up at 3:00 a.m. to go use the restroom. After that he could not fall back asleep. He just did not feel right and was having some pressure in his chest. Denies any cardiovascular history. Patient also denies any history of hypertension as his blood pressure was noted to be elevated in the emergency department. Admits to shortness of breath as well. He follows up with Dr. Gutierrez only slightly saw him recently for a checkup and everything was fine. <Samantha Kelly MD - Last Filed: 05/20/25 01:29> Related Data Home Medications: Home Medications ?Medication ?Instructions ?Recorded ?Confirmed ?Last Taken ?Type Probiotic 1 cap BYMOUTH DAILY 10/17/22 05/19/25 05/18/25 History aspirin 81 mg tablet,delayed 81 mg PO DAILY 10/17/22 05/19/25 05/18/25 History release esomeprazole magnesium 40 mg 40 mg PO DAILY 10/17/22 05/19/25 05/18/25 History capsule,delayed release (Nexium) multivitamin 1 tablet PO DAILY 10/17/22 05/19/25 05/18/25 History <Samantha Kelly MD - Last Filed: 05/20/25 01:29> Allergies/Adverse Reactions: Allergies Allergy/AdvReac Type Severity Reaction Status Date / Time No Known Drug Allergies Allergy Verified 05/19/25 08:19 <Samantha Kelly MD - Last Filed: 05/20/25 01:29> Review of Systems Review of Systems: All systems are reviewed and are negative unless stated otherwise in the HPI. <Samantha Kelly MD - Last Filed: 05/20/25 01:29> PMFSH Family History Family History: Family History Father Cancer Mother Diabetes mellitus Hypertension Sibling Lung cancer Brain cancer <Samantha Kelly MD - Last Filed: 05/20/25 01:29> Social History Social History: Social History Smoking status: Never smoker Smokeless tobacco user: chewing tobacco Alcohol intake: current Drinks per week: 7 Alcohol use details: A glass of wine a day Substance use: never Substance use type: does not use Other substance usage details: Glass of wine with dinner Do You Feel Safe in your Home?: Yes Lack of Transportation: No Lack of Food: Never True Current Housing: I Have Housing Concerned About Future Housing: No Difficulty Paying Gas/Electric Bills: No Difficulty Paying for Meds: No Currently Unemployed: No Education: High School Diploma/GED Difficulty w/ Childcare or Family Care: No Living arrangements: with family Occupation/Education: retired Gender identity (if verbalized by the patient): Male Spiritual care concerns: No Agree to blood products: Yes <Samantha Kelly MD - Last Filed: 05/20/25 01:29> Exam Narrative: General: Alert, awake, afebrile, in no acute distress. HEENT: PERRL, no rhinorrhea, no post nasal drip, oropharynx clear. Neck: Trachea midline, no JVD, no lymphadenopathy. Cardiovascular: Bradycardic with regular rhythm, no murmurs, rubs or gallops, no peripheral edema. Respiratory: Clear to auscultation bilaterally, no tachypnea, no wheezing, no rhonchi, no rubs, no respiratory distress. Abdomen: Soft, nontender, nondistended, no rebound, no guarding, no peritoneal signs. Musculoskeletal: No joint swelling or deformity, normal muscle tone. Skin: No rashes or petechia, no signs of infection. Psychiatric: Alert and oriented, normal behavior and judgment for situation. Neurological: Alert and oriented to person, place, and time. Follows all commands. No focal deficits, speech is clear and fluent. <Samantha Kelly MD - Last Filed: 05/20/25 01:29> Course Consultations Consultation #1: DR CHAUDHARI <Sy Leung MD - Last Filed: 05/19/25 08:14> Date: 05/19/25 <Sy Leung MD - Last Filed: 05/19/25 08:14> Time: 08:14 <Sy Leung MD - Last Filed: 05/19/25 08:14> Vital Signs Vital signs: Vital Signs Temperature 98.2 F 05/19/25 04:06 Pulse Rate 55 L 05/19/25 04:06 Respiratory Rate 23 H 05/19/25 04:06 Blood Pressure 204/96 H 05/19/25 04:06 Pulse Oximetry 96 05/19/25 04:06 Oxygen Delivery Room Air 05/19/25 04:06 Temperature 99.6 F 05/19/25 23:31 Pulse Rate 62 05/20/25 00:00 Respiratory Rate 18 05/19/25 23:51 Blood Pressure 156/70 H 05/19/25 23:31 Pulse Oximetry 94 05/19/25 23:31 Oxygen Delivery Room Air 05/19/25 23:51 <Samantha Kelly MD - Last Filed: 05/20/25 01:29> Vital Signs Temperature 98.2 F 05/19/25 04:06 Pulse Rate 55 L 05/19/25 04:06 Respiratory Rate 23 H 05/19/25 04:06 Blood Pressure 204/96 H 05/19/25 04:06 Pulse Oximetry 96 05/19/25 04:06 Oxygen Delivery Room Air 05/19/25 04:06 Temperature 99.6 F 05/19/25 23:31 Pulse Rate 62 05/20/25 00:00 Respiratory Rate 18 05/19/25 23:51 Blood Pressure 156/70 H 05/19/25 23:31 Pulse Oximetry 94 05/19/25 23:31 Oxygen Delivery Room Air 05/19/25 23:51 <Sy Leung MD - Last Filed: 05/19/25 08:14> MDM - Chest Pain MDM Narrative Medical decision making narrative: The patient was evaluated by myself in the emergency department. History is obtained from patient who is an independent historian and physical exam was performed. External medical records were reviewed at this time. IV was established and pertinent tests were ordered. EKG was obtained which revealed sinus bradycardia at a rate of 50 beats per minute with no evidence of arrhythmia, heart block or acute ischemia. EKG was independently interpreted by me and is currently pending official cardiology read. Laboratory results obtained revealing no acute process. Initial troponin negative. Imaging studies obtained included CXR which was independently interpreted by me revealing [finding], which is pending final radiology interpretation. Differential diagnosis considerations include acute coronary syndrome, infectious process such as pneumonia, acute viral syndrome, dehydration, electrolyte derangements. Comorbidities impacting this visit include none. I have evaluated and discussed social determinants of health with the patient that could potentially impact subsequent diagnosis and treatment plans. Patient was signed out to Dr. Leung pending remainder of the workup. <Samantha Kelly MD - Last Filed: 05/20/25 01:29> The patient was evaluated by myself in the emergency department. History is obtained from patient who is an independent historian and physical exam was performed. External medical records were reviewed at this time. IV was established and pertinent tests were ordered. EKG was obtained which revealed sinus bradycardia at a rate of 50 beats per minute with no evidence of arrhythmia, heart block or acute ischemia. EKG was independently interpreted by me and is currently pending official cardiology read. Laboratory results obtained revealing no acute process. Initial troponin negative. Imaging studies obtained included CXR which was independently interpreted by me revealing [finding], which is pending final radiology interpretation. Differential diagnosis considerations include acute coronary syndrome, infectious process such as pneumonia, acute viral syndrome, dehydration, electrolyte derangements. Comorbidities impacting this visit include none. I have evaluated and discussed social determinants of health with the patient that could potentially impact subsequent diagnosis and treatment plans. Patient was signed out to Dr. Leung pending remainder of the workup. Currently patient feeling much better, denying any symptoms except trouble sleeping for long time. Is telling me that chest pain woke him up at 3:00 a.m. and lasted for roughly 1 hour,. Troponin is negative twice Repeated EKG showed no acute change <Sy Leung MD - Last Filed: 05/19/25 08:14> Lab Data Result diagrams: 05/19/25 04:20 05/19/25 04:20 <Samantha Kelly MD - Last Filed: 05/20/25 01:29> Labs: Lab Results 05/19/25 05/19/25 05/19/25 Range/Units 04:20 04:20 06:57 WBC 8.4 (4.5-10.0) K/mm3 RBC 5.36 (4.6-6.20) M/mm3 Hgb 15.8 (14.0-18.0) g/dL Hct 48.2 (42.0-52.0) % MCV 89.9 (80-100) fl MCH 29.5 (26-34) pg MCHC 32.8 (32-36) g/dl RDW 13.4 (11.5-14.5) % Plt Count 206 (150-375) k/mm3 MPV 10.2 (7.4-10.4) fl Immature Gran % (Auto) 0.2 (0-0.5) % Neut % (Auto) 44.6 L (45.5-73.1) % Lymph % (Auto) 39.9 (18.3-44.2) % [place] % (Auto) 10.1 H (2.6-8.5) % Eos % (Auto) 4.1 (0-4.4) % Baso % (Auto) 1.1 (0.2-1.2) % Lymph # (Auto) 3.33 H (0.9-3.2) K/mm3 [place] # (Auto) 0.8 H (0.1-0.6) K/mm3 Eos # (Auto) 0.3 (0-0.3) K/mm3 Baso # (Auto) 0.1 (0.0-0.1) K/mm3 Abs Immat Gran (auto) 0.02 (0.00-0.031) K/mm3 Absolute Neuts (auto) 3.7 (1.3-6.7) K/mm3 Absolute Nucleated RBC 0.000 (0.0-0.012) K/mm3 Nucleated RBC % 0.0 (0.0-0.2) % PT 13.8 (11.1-14.7) Seconds INR 1.1 APTT 24.5 (22.3-36.8) Seconds Sodium 137 (137-145) mmol/L Potassium 4.0 (3.4-5.0) mmol/L Chloride 104 (98-107) mmol/L Carbon Dioxide 27 (22-30) mmol/L Anion Gap 6 (4-12) mmol/L BUN 14 (9-20) mg/dL Creatinine 0.95 (0.7-1.3) mg/dL Estim Creat Clear Calc 74 ml/min Estimated GFR > 60 (59 - ) Glucose 111 H (65-110) mg/dL Calcium 9.1 (8.4-10.2) mg/dL Magnesium 2.0 Cancelled (1.6-2.3) mg/dL Total Bilirubin 0.6 (0.2-1.3) mg/dL AST 39 (17-59) U/L ALT 37 (6-50) U/L Alkaline Phosphatase 71 (38-126) U/L Troponin I < 0.012 < 0.012 (0.000-0.034) ng/mL Total Protein 7.1 (6.3-8.2) g/dL Albumin 4.2 (3.5-5.1) g/dL Lipase 133 (23-300) U/L <Samantha Kelly MD - Last Filed: 05/20/25 01:29> Lab Results 05/19/25 05/19/25 05/19/25 Range/Units 04:20 04:20 06:57 WBC 8.4 (4.5-10.0) K/mm3 RBC 5.36 (4.6-6.20) M/mm3 Hgb 15.8 (14.0-18.0) g/dL Hct 48.2 (42.0-52.0) % MCV 89.9 (80-100) fl MCH 29.5 (26-34) pg MCHC 32.8 (32-36) g/dl RDW 13.4 (11.5-14.5) % Plt Count 206 (150-375) k/mm3 MPV 10.2 (7.4-10.4) fl Immature Gran % (Auto) 0.2 (0-0.5) % Neut % (Auto) 44.6 L (45.5-73.1) % Lymph % (Auto) 39.9 (18.3-44.2) % [place] % (Auto) 10.1 H (2.6-8.5) % Eos % (Auto) 4.1 (0-4.4) % Baso % (Auto) 1.1 (0.2-1.2) % Lymph # (Auto) 3.33 H (0.9-3.2) K/mm3 [place] # (Auto) 0.8 H (0.1-0.6) K/mm3 Eos # (Auto) 0.3 (0-0.3) K/mm3 Baso # (Auto) 0.1 (0.0-0.1) K/mm3 Abs Immat Gran (auto) 0.02 (0.00-0.031) K/mm3 Absolute Neuts (auto) 3.7 (1.3-6.7) K/mm3 Absolute Nucleated RBC 0.000 (0.0-0.012) K/mm3 Nucleated RBC % 0.0 (0.0-0.2) % PT 13.8 (11.1-14.7) Seconds INR 1.1 APTT 24.5 (22.3-36.8) Seconds Sodium 137 (137-145) mmol/L Potassium 4.0 (3.4-5.0) mmol/L Chloride 104 (98-107) mmol/L Carbon Dioxide 27 (22-30) mmol/L Anion Gap 6 (4-12) mmol/L BUN 14 (9-20) mg/dL Creatinine 0.95 (0.7-1.3) mg/dL Estim Creat Clear Calc 74 ml/min Estimated GFR > 60 (59 - ) Glucose 111 H (65-110) mg/dL Calcium 9.1 (8.4-10.2) mg/dL Magnesium 2.0 Cancelled (1.6-2.3) mg/dL Total Bilirubin 0.6 (0.2-1.3) mg/dL AST 39 (17-59) U/L ALT 37 (6-50) U/L Alkaline Phosphatase 71 (38-126) U/L Troponin I < 0.012 < 0.012 (0.000-0.034) ng/mL Total Protein 7.1 (6.3-8.2) g/dL Albumin 4.2 (3.5-5.1) g/dL Lipase 133 (23-300) U/L <Sy Leung MD - Last Filed: 05/19/25 08:14> Discharge Plan Discharge Clinical Impression: Chest pain <Samantha Kelly MD - Last Filed: 05/20/25 01:29> Patient Disposition: Still a Patient <Samantha Kelly MD - Last Filed: 05/20/25 01:29> Condition: Improved <Samantha Kelly MD - Last Filed: 05/20/25 01:29>
[2025-05-19 04:26] LABS: Hematocrit 48.2 % (42.0-52.0); Hemoglobin 15.8 g/dL (14.0-18.0); Immature Granulocyte Percent A 0.2 % (0-0.5); Lymphocytes Absolute Auto 3.33 K/mm3 (0.9-3.2); Mean Corpuscular HGB Conc 32.8 g/dl (32-36); Mean Corpuscular Hemoglobin 29.5 pg (26-34); Mean Corpuscular Volume 89.9 fl (80-100); Nucleated Red Blood Cells Absolute Auto 0.000 K/mm3 (0.0-0.012); Nucleated Red Blood Cells Perc 0.0 % (0.0-0.2); Platelet Count Result 206 k/mm3 (150-375); Red Blood Count 5.36 M/mm3 (4.6-6.20); White Blood Count 8.4 K/mm3 (4.5-10.0)
[2025-05-19 04:42] LABS: INR 1.1; Partial Thromboplastin Time 24.5 Seconds (22.3-36.8); Prothrombin Time 13.8 Seconds (11.1-14.7)
[2025-05-19 04:46] LABS: Alanine Aminotransferase 37 U/L (6-50); Albumin Level 4.2 g/dL (3.5-5.1); Alkaline Phosphatase 71 U/L (38-126); Anion Gap 6 mmol/L (4-12); Aspartate Amino Transferase 39 U/L (17-59); Bilirubin,Total 0.6 mg/dL (0.2-1.3); Blood Urea Nitrogen 14 mg/dL (9-20); Calcium 9.1 mg/dL (8.4-10.2); Carbon Dioxide 27 mmol/L (22-30); Chloride 104 mmol/L (98-107); Estimated CRCL calculation 74 ml/min; Estimated Glomerular Filt Rate > 60; Glucose 111 mg/dL (65-110); Lipase 133 U/L (23-300); Magnesium 2.0 mg/dL (1.6-2.3); Potassium 4.0 mmol/L (3.4-5.0); Sodium 137 mmol/L (137-145); Total Protein 7.1 g/dL (6.3-8.2)
--- OUTSIDE RECORDS SUMMARY | 2025-05-19 04:46 | XMS_ITS | Clinical Summary ---
Author Organization [facility] Address [address], [address] [address] Phone Care Team Providers Care Photo Specialist Name Role Phone Unavailable Primary Care Provider [...] Recently Relevant to Health Maintenance Insurance MEDICARE [facility]
--- OUTSIDE RECORDS SUMMARY | 2025-05-19 04:46 | XMS_ITS | Continuity of Care Document ---
Author Organization formerly [facility] Address [address] [place] [address] Phone Care Team Providers Care Baggage Checker Name Role Phone Gareth MAHAJAN, Chantal Unavailable [...] Providers Copied on Encounter Office/outpat ient Visit, [facility], [address], [place], [place], [id number], [place] tel:[phone] SEC Roger HANSEN Professional Complete Exam (chief complaint) Retinal detachment , right 7 Gareth Cornejo. [address] [place], [address], [place]. tel:[phone] Referring Provider: Chantal Servin, [address] [place], [address]. tel:[phone] Family History Family Member Type Diagnosis Age At Onset Mother Problem (finding) Diabetes mellitus Payers Payer name Insurance type Covered alliance party ID Authorlit patel(s) Medicare [place] MB [id number] [facility] [id number] Social History Type Description Quantity Date Captured [...] 3 weeks now. Pt reports hewent to [facility] and they told him to come here. Pt reports no pain, irritation, or discomfort OU. Pt reports he doesn't use any gtts. Reason For Referral Reason For Referral No Information Plan Of Treatment Date Type Action Status Referral Referred To: [facility] [address] [place] [address], [phone] Ordered: Referrals: Ophthalmology. JOHN TARIQ. Evaluate and treat ordered History Of Present Illness Encounter Date Complaint History Of Prese nt Illness Complete Exam The 71 year old male presents for Complete Exam in the right eye and left eye. Pt reports he has trouble seeing to his right x 3 weeks now. Pt reports he went to [facility] and they told him to come here. [...]
--- OUTSIDE RECORDS SUMMARY | 2025-05-19 04:46 | XMS_ITS | Encounter Summary ---
Author Organization [facility] Address [address] [place] [address] Phone Care Team Providers Care Meal Miller Name Role Phone Kandis Alejandro MD Primary Care Provider [phone] Reason for Visit * Reason Onset Date Comments Medication Refill Medication Refill 06/25/2020 Encounter Details Date Type Department Care Team (Late st Contact Info) Description 06/21/2020 Refill [facility] - Primary Care - [address] [place] [address] Kandis Alejandro MD [address] [place] [address] Medication Refill; Medication Refill Social [...] patient- patient takes Sonata, not Ambien. Called [facility] pharmacy to discontinue Ambien. Order for Sonata [...] - 19 12/06/2021 12/07/2021 12/08/2021 9:00 AM RESTAURANT FLOOR MANAGER COVID - 19 Confirmed 12/07/2021 12/07/2021 022 12:16 AM RESTAURANT FLOOR MANAGER Assessment Noted Time PHQ-9 Depression Total Score: 0 05/31/20 20 11:00 AM CDT documented as of this encounter Care Teams Meal Miller Relationship Specialty Start Date End Date Kandis Alejandor MD PCP - General Family Medicine 02/21/16 03/18/23 documented as of this encounter
--- OUTSIDE RECORDS SUMMARY | 2025-05-19 04:46 | XMS_ITS | Clinical Summary ---
Author Organization [facility] Address [address] [place] [address] Care Team Providers Care Truck Unloader Name Role Phone Unavailable Primary Care Provider Unavailabl e Source Comments [facility],non-owned Affiliates and Associated Physician Practices is amultiple site organization consisting of ambulatory clinics and hospital sitesin [place], [place], [place] and [place]. This disclosure is being madepursuant to the Care Everywhere program and may not contain all information available regarding this patient. Last updated 18.[facility] Allergies No known active allergies Medications * [...]
[2025-05-19 04:57] LABS: Troponin I < 0.012 ng/mL (0.000-0.034)
--- NOTE | 2025-05-19 07:04 | ED.CHESTPAIN ---
HPI - Chest Pain General Chief Complaint: Chest Pain Stated Complaint: chest pain Time Seen by Provider: 05/19/25 04:05 Related Data Home Medications ?Medication ?Instructions ?Recorded ?Confirmed ?Last Taken ?Type Probiotic BYMOUTH 10/17/22 08/12/24 Unknown History aspirin 81 mg tablet,delayed 81 mg PO DAILY 10/17/22 08/12/24 Unknown History release esomeprazole magnesium 40 mg 40 mg PO DAILY 10/17/22 08/12/24 Unknown History capsule,delayed release (Nexium) multivitamin 1 tablet PO DAILY 10/17/22 08/12/24 Unknown History Allergies Allergy/AdvReac Type Severity Reaction Status Date / Time NKDA Allergy Mild Unknown Uncoded 05/19/25 04:12 PMFSH Family History Family History Father Cancer Mother Diabetes mellitus Hypertension Sibling Lung cancer Brain cancer Social History Social History Smoking status: Never smoker Smokeless tobacco user: chewing tobacco Alcohol intake: current Drinks per week: 7 Alcohol use details: A glass of wine a day Substance use: never Substance use type: does not use Lack of Transportation: No Lack of Food: Never True Current Housing: I Have Housing Concerned About Future Housing: No Difficulty Paying Gas/Electric Bills: No Difficulty Paying for Meds: No Currently Unemployed: No Education: High School Diploma/GED Difficulty w/ Childcare or Family Care: No Living arrangements: with family Occupation/Education: retired Gender identity (if verbalized by the patient): Male Agree to blood products: Yes Course Vital Signs Vital signs: Vital Signs Temperature 36.8 C 05/19/25 04:06 Pulse Rate 55 L 05/19/25 04:06 Respiratory Rate 23 H 05/19/25 04:06 Blood Pressure 204/96 H 05/19/25 04:06 Pulse Oximetry 96 05/19/25 04:06 Oxygen Delivery Room Air 05/19/25 04:06 Temperature 36.8 C 05/19/25 04:15 Pulse Rate 54 L 05/19/25 06:30 Respiratory Rate 17 05/19/25 06:30 Blood Pressure 168/95 H 05/19/25 06:30 Pulse Oximetry 95 05/19/25 06:30 Oxygen Delivery Room Air 05/19/25 04:17 MDM - Chest Pain Lab Data 05/19/25 04:20 05/19/25 04:20 Labs: Lab Results 05/19/25 05/19/25 05/19/25 Range/Units 04:20 04:20 06:57 WBC 8.4 (4.5-10.0) K/mm3 RBC 5.36 (4.6-6.20) M/mm3 Hgb 15.8 (14.0-18.0) g/dL Hct 48.2 (42.0-52.0) % MCV 89.9 (80-100) fl MCH 29.5 (26-34) pg MCHC 32.8 (32-36) g/dl RDW 13.4 (11.5-14.5) % Plt Count 206 (150-375) k/mm3 MPV 10.2 (7.4-10.4) fl Immature Gran % (Auto) 0.2 (0-0.5) % Neut % (Auto) 44.6 L (45.5-73.1) % Lymph % (Auto) 39.9 (18.3-44.2) % Burnet % (Auto) 10.1 H (2.6-8.5) % Eos % (Auto) 4.1 (0-4.4) % Baso % (Auto) 1.1 (0.2-1.2) % Lymph # (Auto) 3.33 H (0.9-3.2) K/mm3 Burnet # (Auto) 0.8 H (0.1-0.6) K/mm3 Eos # (Auto) 0.3 (0-0.3) K/mm3 Baso # (Auto) 0.1 (0.0-0.1) K/mm3 Abs Immat Gran (auto) 0.02 (0.00-0.031) K/mm3 Absolute Neuts (auto) 3.7 (1.3-6.7) K/mm3 Absolute Nucleated RBC 0.000 (0.0-0.012) K/mm3 Nucleated RBC % 0.0 (0.0-0.2) % PT 13.8 (11.1-14.7) Seconds INR 1.1 APTT 24.5 (22.3-36.8) Seconds Sodium 137 (137-145) mmol/L Potassium 4.0 (3.4-5.0) mmol/L Chloride 104 (98-107) mmol/L Carbon Dioxide 27 (22-30) mmol/L Anion Gap 6 (4-12) mmol/L BUN 14 (9-20) mg/dL Creatinine 0.95 (0.7-1.3) mg/dL Estim Creat Clear Calc 74 ml/min Estimated GFR > 60 (59 - ) Glucose 111 H (65-110) mg/dL Calcium 9.1 (8.4-10.2) mg/dL Magnesium 2.0 Cancelled (1.6-2.3) mg/dL Total Bilirubin 0.6 (0.2-1.3) mg/dL AST 39 (17-59) U/L ALT 37 (6-50) U/L Alkaline Phosphatase 71 (38-126) U/L Troponin I < 0.012 Pending (0.000-0.034) ng/mL Total Protein 7.1 (6.3-8.2) g/dL Albumin 4.2 (3.5-5.1) g/dL Lipase 133 (23-300) U/L Discharge Plan Discharge Clinical Impression: Chest pain Patient Disposition: Still a Patient Condition: Improved Patient Language: Belarusian Prescriptions: No Action esomeprazole magnesium [Nexium] 40 mg capsule,delayed release(DR/EC) 40 mg PO DAILY aspirin 81 mg tablet,delayed release (DR/EC) 81 mg PO DAILY multivitamin Tablet 1 tablet PO DAILY Probiotic BYMOUTH methylprednisolone [Medrol (Titi)] 4 mg tablets,dose pack See Rx Instructions PO PER PKG DIR Qty: 21 0RF Rx Instructions: PO PER PKG DIR Follow-up/Referrals: Terry Neri MD [Primary Care Provider] -
--- NOTE | 2025-05-19 07:20 | ECG_ITS ---
Test Date: 2025-05-19 06:59:33 Measurements Intervals [place] Rate: 53 P: -8 [place]: 199 QRS: 2 QRSD: 105 T: 37 QT: 409 QTc: 385 Interpretive Statements SINUS BRADYCARDIA OTHERWISE NORMAL ECG Compared to ECG 05/19/2025 04:10:42 No significant changes Electronically Signed On 05-20-2025 07:24:01 CDT by Duong Gallegos M.D.
[2025-05-19 07:23] LABS: Troponin I < 0.012 ng/mL (0.000-0.034)
--- NOTE | 2025-05-19 09:23 | ADMGEN ---
This patient, Harry Pathak, was admitted to IMU Room 200-01 at 0908. Patient/family oriented to hospital policies and general routines including ID bracelet, bed and alarms, visiting hours, pain management, procedures, bathroom and other care routines, personal items, smoking policy, room service/diet, and visiting hours. Information on how to activate the Rapid Response Team has been discussed. Patient/Family are encouraged to report perceived risks to care and to ask questions if they do not understand what they are told or what they should do.
[2025-05-19 10:40] LABS: Troponin I < 0.012 ng/mL (0.000-0.034)
[2025-05-19 11:06] LABS: Cholesterol 183 mg/dL (0-200); HDL Direct 49 mg/dL; Triglycerides 78 mg/dL (<150)
--- NOTE | 2025-05-19 14:38 | PC.NURSE ---
Reports 4/10 epigastric pain, reproducible with palpation. Does not radiate. Denies nausea. Color normal for pt. Skin warm and dry. Ate tomato soup for lunch. Reports that he takes Nexium for reflux at home. Dr. Dan made aware. New orders for Protonix daily, Tums now x 1 dose.
--- NOTE | 2025-05-19 14:41 | PM.IMHP ---
H&P: HPI History of Present Illness Date/Time: 05/19/25 14:41 Chief Complaint: Chest pain Narrative: 80 yo male with with no significant PMH wo presented to the ER on account of chest pain. Patient noted that he started having chest pain at about 3am, associated with SOB. 5/10 in intensity, non radiating. Denies any abd pain, vomiting, diarrhea, focal deficits. ER eval HR 55, RR 23, BP 204/96, 96% on room air Labs mostly unremarkable, troponin negative x2 CXR showed clear lungs amd EKG sinus bradycardia Review of Systems Review of Systems: All other systems were reviewed and negative except as noted in the HPI above PMFSH Family History Family History Father Cancer Mother Diabetes mellitus Hypertension Sibling Lung cancer Brain cancer Social History Social History Smoking status: Never smoker Smokeless tobacco user: chewing tobacco Alcohol intake: current Drinks per week: 7 Alcohol use details: A glass of wine a day Substance use: never Substance use type: does not use Other substance usage details: Glass of wine with dinner Do You Feel Safe in your Home?: Yes Lack of Transportation: No Lack of Food: Never True Current Housing: I Have Housing Concerned About Future Housing: No Difficulty Paying Gas/Electric Bills: No Difficulty Paying for Meds: No Currently Unemployed: No Education: High School Diploma/GED Difficulty w/ Childcare or Family Care: No Living arrangements: with family Occupation/Education: retired Gender identity (if verbalized by the patient): Male Spiritual care concerns: No Agree to blood products: Yes Meds Home Medications and Allergies Home Medications ?Medication ?Instructions ?Recorded ?Confirmed ?Type Probiotic 1 cap BYMOUTH DAILY 10/17/22 05/19/25 History aspirin 81 mg tablet,delayed 81 mg PO DAILY 10/17/22 05/19/25 History release esomeprazole magnesium 40 mg 40 mg PO DAILY 10/17/22 05/19/25 History capsule,delayed release (Nexium) multivitamin 1 tablet PO DAILY 10/17/22 05/19/25 History Allergies Allergy/AdvReac Type Severity Reaction Status Date / Time No Known Drug Allergies Allergy Verified 05/19/25 08:19 Vital Signs Vital Signs - 24 hr 05/19/25 04:06 05/19/25 04:13 05/19/25 04:15 Temperature 98.2 F 98.2 F Pulse Rate 55 L 50 L Respiratory Rate 23 H 22 H Blood Pressure 204/96 H 195/98 H Pulse Oximetry 96 98 97 Oxygen Delivery Room Air Room Air 05/19/25 04:16 05/19/25 04:17 05/19/25 05:07 Temperature Pulse Rate 50 L 52 L Respiratory Rate 20 Blood Pressure 169/83 H Pulse Oximetry 96 94 Oxygen Delivery Room Air 05/19/25 05:07 05/19/25 05:15 05/19/25 05:21 Temperature Pulse Rate 52 L 52 L 53 L Respiratory Rate 19 16 15 Blood Pressure 165/86 H Pulse Oximetry 94 94 93 Oxygen Delivery 05/19/25 05:30 05/19/25 05:41 05/19/25 05:45 Temperature Pulse Rate 53 L 54 L 52 L Respiratory Rate 15 18 17 Blood Pressure 162/86 H Pulse Oximetry 94 94 95 Oxygen Delivery 05/19/25 06:00 05/19/25 06:01 05/19/25 06:02 Temperature Pulse Rate 55 L 55 L 57 L Respiratory Rate 23 H 21 H 19 Blood Pressure 180/82 H 165/88 H Pulse Oximetry 94 95 Oxygen Delivery 05/19/25 06:15 05/19/25 06:21 05/19/25 06:30 Temperature Pulse Rate 53 L 58 L 54 L Respiratory Rate 21 H 20 17 Blood Pressure 168/95 H 168/95 H Pulse Oximetry 95 94 95 Oxygen Delivery 05/19/25 06:30 05/19/25 06:41 05/19/25 06:45 Temperature Pulse Rate 54 L 54 L 61 Respiratory Rate 16 19 18 Blood Pressure 161/83 H Pulse Oximetry 95 94 95 Oxygen Delivery 05/19/25 07:00 05/19/25 07:01 05/19/25 07:15 Temperature Pulse Rate 55 L 54 L 55 L Respiratory Rate 18 18 16 Blood Pressure 152/86 H Pulse Oximetry 94 93 94 Oxygen Delivery 05/19/25 07:19 05/19/25 07:21 05/19/25 07:30 Temperature Pulse Rate 61 61 63 Respiratory Rate 20 16 16 Blood Pressure 152/86 H 150/88 H Pulse Oximetry 95 94 96 Oxygen Delivery 05/19/25 07:41 05/19/25 07:45 05/19/25 08:00 Temperature Pulse Rate 57 L 54 L 56 L Respiratory Rate 19 17 18 Blood Pressure 148/77 H Pulse Oximetry 94 95 94 Oxygen Delivery 05/19/25 08:01 05/19/25 08:15 05/19/25 08:30 Temperature Pulse Rate 58 L 59 L 56 L Respiratory Rate 16 21 H 17 Blood Pressure 146/78 H Pulse Oximetry 95 96 96 Oxygen Delivery 05/19/25 08:45 05/19/25 09:26 05/19/25 10:00 Temperature 97.8 F Pulse Rate 78 68 58 L Respiratory Rate 19 18 Blood Pressure 136/74 Pulse Oximetry 97 Oxygen Delivery 05/19/25 11:37 05/19/25 11:55 05/19/25 12:00 Temperature 98.2 F Pulse Rate 58 L 55 L Respiratory Rate 20 Blood Pressure 132/76 Pulse Oximetry 96 Oxygen Delivery Room Air 05/19/25 14:00 Temperature Pulse Rate 58 L Respiratory Rate Blood Pressure Pulse Oximetry Oxygen Delivery Exam Narrative: General: alert and comfortable Eyes: EOMI, PERRLA ENNT External ears normal, Neck is supple, no masses, Respiratory systems: Clear to auscultation Cardiovascular S1, S2, normal rhythm, no murmur, rub, or gallop; no thrill or palpable murmurs on palpation. Gastrointestinal: soft, non-tender, and non-distended abdomen with no masses; BS present Skin: no rash, lesions, ulcerations, subcutaneous nodules or induration Musculoskeletal: no abnormality and no tenderness, normal ROM Neurologic: Alert and oriented x3, non focal Mental Status Exam: normal affect H&P: Results Labs Labs: Short CBC 05/19/25 Range/Units 04:20 WBC 8.4 (4.5-10.0) K/mm3 Hgb 15.8 (14.0-18.0) g/dL Hct 48.2 (42.0-52.0) % Plt Count 206 (150-375) k/mm3 [facility] 05/19/25 04:20 Sodium 137 Potassium 4.0 Chloride 104 Carbon Dioxide 27 BUN 14 Creatinine 0.95 Glucose 111 H Calcium 9.1 Cardiac Enzymes 05/19/25 05/19/25 05/19/25 Range/Units 04:20 06:57 10:07 Troponin I < 0.012 < 0.012 < 0.012 (0.000-0.034) ng/mL Liver Function 05/19/25 Range/Units 04:20 Total Bilirubin 0.6 (0.2-1.3) mg/dL AST 39 (17-59) U/L ALT 37 (6-50) U/L Alkaline Phosphatase 71 (38-126) U/L Albumin 4.2 (3.5-5.1) g/dL Assessment and Plan Assessment and plan (1) Chest pain: Code(s): R07.9 - Chest pain, unspecified Status: Acute Plan Chest pain Troponin negative, CXR unremarkable ECHO, A1c, Llipid panel continue Aspirin, Lipitor Cardiology consulted Hypertension BP on presentation 204/96 now 136/76 No hx of hypertension Bradycardia EKG showed sinus bradycardia HR 58 monitor DVT prophylaxis on Sq Lovenox DNR SDM: Erica Pathak Hospitalist MIPS Advance Care Plan I have confirmed that the patient's Advanced Care Plan is present, code status is documented, or surrogate decision maker is listed in patient medical record.: Yes Medication Reconciliation I have utilized all available resources to obtain, update and review the patients current medications (includes all prescriptions, OTC, herbals, cannabis, and nutritional supplements).: Yes
[2025-05-19] MEDS: CALCIUM CARBONATE (TUMS) 500 MG (200 MG ELEMENTAL) PO (15:01)
[2025-05-19] MEDS: PERFLUTREN LIPID MICROSPHERES 1.5 ML VIAL DILUTED TO 10 ML TOTAL VOLUME IV PUSH (15:50)
--- NOTE | 2025-05-19 16:57 | IVDEFINITY ---
Prior to administration of IV Definity the patient was educated on the risks and benefits of the imaging enhancing agent including potential adverse side effects. The patient verbalized understanding. Allergies were verified. No exclusion criteria were identified and at least one of the following inclusion criteria were met: 1) physician request, 2) patient technically difficult to image (per the [place] [employer] guidelines of two or more segments not discernable within the apical view), or 3) questionable left ventricular function. ?
[2025-05-19] MEDS: PANTOPRAZOLE 40 MG TABLET PO (17:12)
[2025-05-19] MEDS: ACETAMINOPHEN 325 MG TABLET 650 MG PO (19:19)
[2025-05-20] VITALS (14 sets, daily range): BP systolic 141–163; BP diastolic 73–85; PULSE 62–80; RESP 18–22; TEMP 36.9–38.4; O2SAT 93–97
[2025-05-20 04:58] LABS: Hematocrit 45.9 % (42.0-52.0); Hemoglobin 15.3 g/dL (14.0-18.0); Immature Granulocyte Percent A 0.3 % (0-0.5); Lymphocytes Absolute Auto 1.70 K/mm3 (0.9-3.2); Mean Corpuscular HGB Conc 33.3 g/dl (32-36); Mean Corpuscular Hemoglobin 29.7 pg (26-34); Mean Corpuscular Volume 89.1 fl (80-100); Nucleated Red Blood Cells Absolute Auto 0.000 K/mm3 (0.0-0.012); Nucleated Red Blood Cells Perc 0.0 % (0.0-0.2); Platelet Count Result 186 k/mm3 (150-375); Red Blood Count 5.15 M/mm3 (4.6-6.20); White Blood Count 12.3 K/mm3 (4.5-10.0)
[2025-05-20 05:09] LABS: Alanine Aminotransferase 33 U/L (6-50); Albumin Level 4.1 g/dL (3.5-5.1); Alkaline Phosphatase 55 U/L (38-126); Anion Gap 7 mmol/L (4-12); Aspartate Amino Transferase 34 U/L (17-59); Bilirubin,Total 1.6 mg/dL (0.2-1.3); Blood Urea Nitrogen 12 mg/dL (9-20); Calcium 9.0 mg/dL (8.4-10.2); Carbon Dioxide 25 mmol/L (22-30); Chloride 102 mmol/L (98-107); Cholesterol 160 mg/dL (0-200); Estimated CRCL calculation 70 ml/min; Estimated Glomerular Filt Rate > 60; Glucose 115 mg/dL (65-110); HDL Direct 48 mg/dL; Magnesium 1.8 mg/dL (1.6-2.3); Potassium 3.8 mmol/L (3.4-5.0); Sodium 134 mmol/L (137-145); Total Protein 6.8 g/dL (6.3-8.2); Triglycerides 70 mg/dL (<150)
[2025-05-20 05:17] LABS: Hemoglobin A1C 5.1 % (<5.7)
[2025-05-20] MEDS: PANTOPRAZOLE 40 MG TABLET PO (09:15)
[2025-05-20] MEDS: ENOXAPARIN 40 MG/0.4 ML SYRINGE SUB-Q (09:15)
[2025-05-20] MEDS: ASPIRIN 81 MG CHEWABLE TABLET PO (09:15)
[2025-05-20] MEDS: ATORVASTATIN 20 MG TABLET PO (09:16)
[2025-05-20] MEDS: PIPERACILLIN/TAZOBACTAM SODIUM 3.375 GM VIAL (11:33)
--- NOTE | 2025-05-20 12:44 | PM.IMPN ---
Progress Note: A&P Assessment and Plan (1) Chest pain: Code(s): R07.9 - Chest pain, unspecified Status: Acute Plan Chest pain Troponin negative, CXR unremarkable ECHO showed normal EF with grade I diastolic dysfunction A1c 5.1, LDL 89 continue Aspirin, Lipitor Cardiology consulted for further ischemic eval Fever TMax temperature 100.[address] chest and AP showed Gastroduodenitis and possible mass Blood culture, Zosyn monitor closely Gastroduodenitis with possible mass CT AP reviewed Continue PPI and Zosyn GI consulted Hypertension BP on presentation 204/96 now 141/76 On Lisinopril 5mg daily Bradycardia EKG showed sinus bradycardia HR 64 monitor DVT prophylaxis on Sq Lovenox DNR SDM: Erica Pathak Subjective Date/time seen: 05/20/25 12:44 Interval history: Angelica at bedside had fever last night CT AP and chest showed Gastroduodenitis with possible mass. GI consulted Review of Systems Review of Systems: All other systems were reviewed and negative except as noted in the HPI above Exam Narrative: General: alert and comfortable Eyes: EOMI, PERRLA ENNT External ears normal, Neck is supple, no masses, Respiratory systems: Clear to auscultation Cardiovascular S1, S2, normal rhythm, no murmur, rub, or gallop; no thrill or palpable murmurs on palpation. Gastrointestinal: soft, non-tender, and non-distended abdomen with no masses; BS present Skin: no rash, lesions, ulcerations, subcutaneous nodules or induration Musculoskeletal: no abnormality and no tenderness, normal ROM Neurologic: Alert and oriented x3, non focal Mental Status Exam: normal affect Objective Data Vital Signs Vital Signs: Vital Signs - 24 hr 05/19/25 14:00 05/19/25 16:00 05/19/25 16:00 Temperature Pulse Rate 58 L 56 L Respiratory Rate Blood Pressure Pulse Oximetry Oxygen Delivery Room Air Fraction of Inspired Oxygen 05/19/25 16:12 05/19/25 18:00 05/19/25 19:19 Temperature 100 F H 100.5 F H Pulse Rate 57 L 56 L Respiratory Rate 20 Blood Pressure 168/81 H Pulse Oximetry 97 Oxygen Delivery Fraction of Inspired Oxygen 05/19/25 19:20 05/19/25 19:36 05/19/25 20:00 Temperature 100.6 F H Pulse Rate 63 63 Respiratory Rate 18 18 Blood Pressure 156/71 H 148/82 H Pulse Oximetry 95 95 Oxygen Delivery Room Air Fraction of Inspired Oxygen 05/19/25 20:00 05/19/25 20:19 05/19/25 22:00 Temperature 99.8 F H Pulse Rate 61 64 Respiratory Rate Blood Pressure Pulse Oximetry Oxygen Delivery Fraction of Inspired Oxygen 05/19/25 23:31 05/19/25 23:51 05/20/25 00:00 Temperature 99.6 F Pulse Rate 64 59 L 62 Respiratory Rate 18 18 Blood Pressure 156/70 H Pulse Oximetry 94 Oxygen Delivery Room Air Fraction of Inspired Oxygen 05/20/25 02:00 05/20/25 04:00 05/20/25 04:30 Temperature Pulse Rate 71 75 71 Respiratory Rate 18 Blood Pressure Pulse Oximetry 94 Oxygen Delivery Room Air Fraction of Inspired Oxygen 05/20/25 05:52 05/20/25 07:59 05/20/25 08:00 Temperature 100.0 F H Pulse Rate 67 71 Respiratory Rate 20 Blood Pressure 147/73 H Pulse Oximetry 95 95 Oxygen Delivery Room Air Fraction of Inspired Oxygen 21 05/20/25 08:00 05/20/25 08:04 05/20/25 10:00 Temperature 98.4 F Pulse Rate 63 64 Respiratory Rate 18 Blood Pressure 163/79 H Pulse Oximetry 94 Oxygen Delivery Room Air Fraction of Inspired Oxygen 05/20/25 11:58 Temperature 98.5 F Pulse Rate 64 Respiratory Rate 20 Blood Pressure 141/76 H Pulse Oximetry 97 Oxygen Delivery Fraction of Inspired Oxygen Intake/Output Intake/Output: Intake & Output 05/17/25 05/18/25 05/19/25 05/20/25 23:59 23:59 23:59 23:59 Intake Total 730 790 Output Total 1475 900 Balance -745 -110 Meds/Results Medications: Active Medications Generic Name Dose Route Start Last Admin Trade Name Freq PRN Reason Stop Dose Admin Acetaminophen 650 mg 05/19/25 08:14 05/19/25 19:19 Acetaminophen 325 Mg Tablet PO 650 mg Q4H PRN Administration Mild Pain (1-3) or Fever Aspirin 81 mg 05/20/25 08:00 05/20/25 09:15 Aspirin 81 Mg Chewable Tablet PO 81 mg DAILY@0800 DOROTHY Administration Atorvastatin Calcium 20 mg 05/20/25 09:00 05/20/25 09:16 Atorvastatin 20 Mg Tablet PO 20 mg DAILY DOROTHY Administration Enoxaparin Sodium 40 mg 05/20/25 09:00 05/20/25 09:15 Enoxaparin 40 Mg/0.4 Ml Syringe SUB-Q 40 mg DAILY DOROTHY Administration Piperacillin Sod/Tazobactam 50 mls @ 100 mls/hr 05/20/25 10:00 05/20/25 11:33 Sod 3.375 gm/ Sodium Chloride IVPB Not Given Q6H DOROTHY Pantoprazole Sodium 40 mg 05/20/25 09:50 05/20/25 11:27 Pantoprazole Sodium Iv 40 Mg Vial IV PUSH Not Given Q12HR DOROTHY Radiology Results: ITS Impressions Chest X-Ray 05/19/25 05:48 Impression: Clear lungs. Chest/Abdomen/Pelvis CT 05/20/25 08:33 IMPRESSION: Diffuse wall thickening and mucosal hyperenhancement of the distal stomach and proximal duodenum. Findings are concerning for gastroduodenitis. Possible malignancy cannot be excluded. Labs Labs: Laboratory Results - last 24 hr 05/20/25 05/20/25 03:56 08:16 WBC 12.3 H RBC 5.15 Hgb 15.3 Hct 45.9 MCV 89.1 MCH 29.7 MCHC 33.3 RDW 13.5 Plt Count 186 MPV 10.8 H Immature Gran % (Auto) 0.3 Neut % (Auto) 74.1 H Lymph % (Auto) 13.8 L [place] % (Auto) 10.8 H Eos % (Auto) 0.5 Baso % (Auto) 0.5 Lymph # (Auto) 1.70 [place] # (Auto) 1.3 H Eos # (Auto) 0.1 Baso # (Auto) 0.1 Abs Immat Gran (auto) 0.04 H Absolute Neuts (auto) 9.1 H Absolute Nucleated RBC 0.000 Nucleated RBC % 0.0 Sodium 134 L Potassium 3.8 Chloride 102 Carbon Dioxide 25 Anion Gap 7 BUN 12 Creatinine 0.84 Estim Creat Clear Calc 70 Estimated GFR > 60 Glucose 115 H Hemoglobin A1c 5.1 Lactic Acid 1.9 Calcium 9.0 Magnesium 1.8 Total Bilirubin 1.6 H AST 34 ALT 33 Alkaline Phosphatase 55 Total Protein 6.8 Albumin 4.1 Triglycerides 70 Cholesterol 160 LDL Cholesterol Direct 89 HDL Direct 48
--- NOTE | 2025-05-20 13:57 | PM.CNCAR ---
Assessment and Plan Assessment and plan (1) Chest pain: Code(s): R07.9 - Chest pain, unspecified Status: Acute (2) Hypertensive urgency: Code(s): I16.0 - Hypertensive urgency Status: Acute (3) Sinus bradycardia: Code(s): R00.1 - Bradycardia, unspecified Status: Acute Plan Chest pain- Hypertensive urgency A bradycardia-Heart rate in the 50s, asymptomatic Gastroduodenitis on CT abdomen-GI consulted Plan: -No recurrence of chest pain since presenting episode. Troponin x3 negative. ACS ruled out. EKG sinus rhythm without any significant ST-T changes. Telemetry shows sinus bradycardia. TTE shows normal LVEF without any regional wall motion abnormalities or significant valvular pathology. Chest pain could be secondary to anxiety from bad dream versus secondary to hypertensive urgency. Recommend continuing aspirin 81 mg daily and atorvastatin 20 mg daily. Check FLP. Recommend cardiology follow-up at outpatient stress test in a month -Lisinopril 5 mg daily was started for control of blood pressure. SBP is in the 140s with this. Continue lisinopril at discharge. Advised patient to check his blood pressure daily -Avoid beta-emily as he has bradycardia with heart rate in the 50s -Management of other medical problems per primary team -Check TSH and free T4 -Check and replace electrolytes as needed to keep potassium greater than 4 and magnesium greater than 2 Cardiology will sign off. Please call us with any questions. History of Present Illness History of Present Illness Consult date/time: 05/20/25 13:57 Reason For Visit: Chest Pain/Insomnia Narrative: 80-year-old male with no significant past medical history presents with chief complaints of chest pain. Patient is accompanied by his in history is provided by both patient and his . Patient had been very active over the past weekend spending time with family and 9 grandkids. He said he was tired when he came home on Sunday but again went to play cards with his friends on Sunday. He went to bed on Sunday tired and woke up with a bad dream at around 3:00 a.m.. At the same time he experienced central chest pain that radiated to his back. He describes the pain as a pressure going through his chest. No radiation of pain to the neck arm or jaw. Pain was not associated with any diaphoresis, sweating or shortness of breath. He presented to the ER where he was given aspirin and chest pain relieved after that. He has not had any further episodes of chest pain since then. Patient denies any chest pain prior to this episode. He is very active and has never had chest pain with exertion. He drinks an occasional glass of wine and does not smoke at present. No shortness of breath, dizziness, lightheadedness, leg swelling, recent weight gain, presyncope, syncope, orthopnea, PND. No no recent sick contacts. No cough, fevers, chills, headaches, nausea, emesis, abdominal pain. In the ER his blood pressure was very high- 204/96 mm Hg and he had a low-grade fever. Troponin x3 negative. EKG shows sinus bradycardia without any significant ST-T changes. TTE showed normal LVEF and no significant valvular pathology. Chest x-ray was negative. He had a CT chest abdomen pelvis which showed gastroduodenitis and GI has been consulted. Cardiology was consulted for further recommendations for chest pain. Workup: WBC: 12.3 Troponin: Negative x3 EKG: Sinus bradycardia with heart rate of 53 TTE: Normal LV systolic function 60-65%, grade 1 diastolic dysfunction, no significant valvular pathology Chest x-ray: No acute cardiopulmonary pathology CT chest/abdomen/pelvis: Diffuse wall thickening and mucosal hyperenhancement of the distal stomach and proximal duodenum. Findings are concerning for gastroduodenitis. Possible malignancy cannot be excluded. Review of Systems Review of Systems: Complete review of systems was performed and negative other than those mentioned HPI [facility] Family History Family History Father Cancer Mother Diabetes mellitus Hypertension Sibling Lung cancer Brain cancer Social History Social History Smoking status: Never smoker Smokeless tobacco user: chewing tobacco Alcohol intake: current Drinks per week: 7 Alcohol use details: A glass of wine a day Substance use: never Substance use type: does not use Other substance usage details: Glass of wine with dinner Do You Feel Safe in your Home?: Yes Lack of Transportation: No Lack of Food: Never True Current Housing: I Have Housing Concerned About Future Housing: No Difficulty Paying Gas/Electric Bills: No Difficulty Paying for Meds: No Currently Unemployed: No Education: High School Diploma/GED Difficulty w/ Childcare or Family Care: No Living arrangements: with family Occupation/Education: retired Gender identity (if verbalized by the patient): Male Spiritual care concerns: No Agree to blood products: Yes Meds Home Medications and Allergies Home Medications ?Medication ?Instructions ?Recorded ?Confirmed ?Type Probiotic 1 cap BYMOUTH DAILY 10/17/22 05/19/25 History aspirin 81 mg tablet,delayed 81 mg PO DAILY 10/17/22 05/19/25 History release esomeprazole magnesium 40 mg 40 mg PO DAILY 10/17/22 05/19/25 History capsule,delayed release (Nexium) multivitamin 1 tablet PO DAILY 10/17/22 05/19/25 History Allergies Allergy/AdvReac Type Severity Reaction Status Date / Time No Known Drug Allergies Allergy Verified 05/19/25 08:19 Vital Signs Vital Signs - 24 hr 05/19/25 14:00 05/19/25 16:00 05/19/25 16:00 Temperature Pulse Rate 58 L 56 L Respiratory Rate Blood Pressure Pulse Oximetry Oxygen Delivery Room Air Fraction of Inspired Oxygen 05/19/25 16:12 05/19/25 18:00 05/19/25 19:19 Temperature 37.7 C H 38.1 C H Pulse Rate 57 L 56 L Respiratory Rate 20 Blood Pressure 168/81 H Pulse Oximetry 97 Oxygen Delivery Fraction of Inspired Oxygen 05/19/25 19:20 05/19/25 19:36 05/19/25 20:00 Temperature 38.1 C H Pulse Rate 63 63 Respiratory Rate 18 18 Blood Pressure 156/71 H 148/82 H Pulse Oximetry 95 95 Oxygen Delivery Room Air Fraction of Inspired Oxygen 05/19/25 20:00 05/19/25 20:19 05/19/25 22:00 Temperature 37.7 C H Pulse Rate 61 64 Respiratory Rate Blood Pressure Pulse Oximetry Oxygen Delivery Fraction of Inspired Oxygen 05/19/25 23:31 05/19/25 23:51 05/20/25 00:00 Temperature 37.6 C Pulse Rate 64 59 L 62 Respiratory Rate 18 18 Blood Pressure 156/70 H Pulse Oximetry 94 Oxygen Delivery Room Air Fraction of Inspired Oxygen 05/20/25 02:00 05/20/25 04:00 05/20/25 04:30 Temperature Pulse Rate 71 75 71 Respiratory Rate 18 Blood Pressure Pulse Oximetry 94 Oxygen Delivery Room Air Fraction of Inspired Oxygen 05/20/25 05:52 05/20/25 07:59 05/20/25 08:00 Temperature 37.8 C H Pulse Rate 67 71 Respiratory Rate 20 Blood Pressure 147/73 H Pulse Oximetry 95 95 Oxygen Delivery Room Air Fraction of Inspired Oxygen 21 05/20/25 08:00 05/20/25 08:04 05/20/25 10:00 Temperature 36.9 C Pulse Rate 63 64 Respiratory Rate 18 Blood Pressure 163/79 H Pulse Oximetry 94 Oxygen Delivery Room Air Fraction of Inspired Oxygen 05/20/25 11:58 Temperature 36.9 C Pulse Rate 64 Respiratory Rate 20 Blood Pressure 141/76 H Pulse Oximetry 97 Oxygen Delivery Fraction of Inspired Oxygen Exam Narrative: General: Alert oriented x3, no acute distress Neck: Supple, no JVD Chest: Bilaterally clear to auscultation, no rales or rhonchi Cardiac: S1, S2 +, regular rate, regular rhythm, no murmurs or rubs Extremities: No pedal edema, no skin rash Neurologic: Alert and oriented x3, no focal neurological deficits Results Labs and Meds 05/20/25 03:56 05/20/25 03:56 Lab results: Cardiac Enzymes 05/20/25 Range/Units 03:56 AST 34 (17-59) U/L Lipids 05/20/25 Range/Units 03:56 Triglycerides 70 (<150) mg/dL Cholesterol 160 (0-200) mg/dL CBC 05/20/25 Range/Units 03:56 WBC 12.3 H (4.5-10.0) K/mm3 RBC 5.15 (4.6-6.20) M/mm3 Hgb 15.3 (14.0-18.0) g/dL Hct 45.9 (42.0-52.0) % Plt Count 186 (150-375) k/mm3 Lymph # (Auto) 1.70 (0.9-3.2) K/mm3 [place] # (Auto) 1.3 H (0.1-0.6) K/mm3 Eos # (Auto) 0.1 (0-0.3) K/mm3 Baso # (Auto) 0.1 (0.0-0.1) K/mm3 Comprehensive Metabolic Panel 05/20/25 Range/Units 03:56 Sodium 134 L (137-145) mmol/L Potassium 3.8 (3.4-5.0) mmol/L Chloride 102 (98-107) mmol/L Carbon Dioxide 25 (22-30) mmol/L BUN 12 (9-20) mg/dL Creatinine 0.84 (0.7-1.3) mg/dL Glucose 115 H (65-110) mg/dL Calcium 9.0 (8.4-10.2) mg/dL AST 34 (17-59) U/L ALT 33 (6-50) U/L Alkaline Phosphatase 55 (38-126) U/L Total Protein 6.8 (6.3-8.2) g/dL Albumin 4.1 (3.5-5.1) g/dL Intake and Output 05/19/25 05/20/25 05/20/25 23:59 07:59 15:59 Intake Total 490 550 680 Output Total 1475 900 650 Balance -985 -350 30 Intake: Oral 490 550 680 Output: Urine 1475 900 650 Other: # Unmeasured Voids 2 Patient Weight 05/20/25 23:59 Weight 96.8 kg
--- NOTE | 2025-05-20 14:55 | P.CONGI_ITS ---
Assessment and Plan Assessment and plan (1) Abnormal CT scan: Code(s): R93.89 - Abnormal findings on diagnostic imaging of other specified body structures Status: Acute Assessment and Plan: CT scan review shows subtle findings that, when considered with the patient's normal hemoglobin and absence of upper GI symptoms, indicate a very low likelihood of gastric malignancy. We've provided the patient and his with our contact information for follow-up should his symptoms change, at which point an EGD would be considered. Cardiology clears him for discharge tonight, and an overnight stay for an EGD is not clinically justified. GI Consult Note Consult date/time: 05/20/25 14:55 Reason for consult: Abnormal CT scan HPI: Harry Pathak is a 80 year old male admitted on 05/19/2025 for exacerbation of shortness of breath and chest pain. The patient was thoroughly evaluated by Cardiology for increase blood pressure, which is currently controlled. As further workup, a CT scan of the chest abdomen and pelvis was obtained yesterday showing diffuse wall thickening of distal stomach and proximal duodenum. There was a question of gastroduodenitis. However, the patient denies nausea, vomiting, unintentional weight loss, early satiety or epigastric pain. Significant labs show: White count 8.4, hemoglobin 15.8, sodium 134, potassium 3.8, bilirubin 1.6, AST 34, ALT 33, albumin 4.1 Review of Systems 2 Review of Systems: All systems reviewed & are unremarkable except as noted in HPI and below PMFSH Family History Family History Father Cancer Mother Diabetes mellitus Hypertension Sibling Lung cancer Brain cancer Social History Social History Smoking status: Never smoker Smokeless tobacco user: chewing tobacco Alcohol intake: current Drinks per week: 7 Alcohol use details: A glass of wine a day Substance use: never Substance use type: does not use Other substance usage details: Glass of wine with dinner Do You Feel Safe in your Home?: Yes Lack of Transportation: No Lack of Food: Never True Current Housing: I Have Housing Concerned About Future Housing: No Difficulty Paying Gas/Electric Bills: No Difficulty Paying for Meds: No Currently Unemployed: No Education: High School Diploma/GED Difficulty w/ Childcare or Family Care: No Living arrangements: with family Occupation/Education: retired Gender identity (if verbalized by the patient): Male Spiritual care concerns: No Agree to blood products: Yes Meds Home Medications and Allergies Home Medications ?Medication ?Instructions ?Recorded ?Confirmed ?Type Probiotic 1 cap BYMOUTH DAILY 10/17/22 05/19/25 History aspirin 81 mg tablet,delayed 81 mg PO DAILY 10/17/22 05/19/25 History release esomeprazole magnesium 40 mg 40 mg PO DAILY 10/17/22 05/19/25 History capsule,delayed release (Nexium) multivitamin 1 tablet PO DAILY 10/17/22 05/19/25 History Allergies Allergy/AdvReac Type Severity Reaction Status Date / Time No Known Drug Allergies Allergy Verified 05/19/25 08:19 Vital Signs Vital Signs - 24 hr 05/19/25 16:00 05/19/25 16:00 05/19/25 16:12 Temperature 100 F H Pulse Rate 56 L 57 L Respiratory Rate 20 Blood Pressure 168/81 H Pulse Oximetry 97 Oxygen Delivery Room Air Fraction of Inspired Oxygen 05/19/25 18:00 05/19/25 19:19 05/19/25 19:20 Temperature 100.5 F H Pulse Rate 56 L Respiratory Rate Blood Pressure 156/71 H Pulse Oximetry Oxygen Delivery Fraction of Inspired Oxygen 05/19/25 19:36 05/19/25 20:00 05/19/25 20:00 Temperature 100.6 F H Pulse Rate 63 63 61 Respiratory Rate 18 18 Blood Pressure 148/82 H Pulse Oximetry 95 95 Oxygen Delivery Room Air Fraction of Inspired Oxygen 05/19/25 20:19 05/19/25 22:00 05/19/25 23:31 Temperature 99.8 F H 99.6 F Pulse Rate 64 64 Respiratory Rate 18 Blood Pressure 156/70 H Pulse Oximetry 94 Oxygen Delivery Fraction of Inspired Oxygen 05/19/25 23:51 05/20/25 00:00 05/20/25 02:00 Temperature Pulse Rate 59 L 62 71 Respiratory Rate 18 Blood Pressure Pulse Oximetry Oxygen Delivery Room Air Fraction of Inspired Oxygen 05/20/25 04:00 05/20/25 04:30 05/20/25 05:52 Temperature 100.0 F H Pulse Rate 75 71 67 Respiratory Rate 18 20 Blood Pressure 147/73 H Pulse Oximetry 94 95 Oxygen Delivery Room Air Fraction of Inspired Oxygen 05/20/25 07:59 05/20/25 08:00 05/20/25 08:00 Temperature Pulse Rate 71 Respiratory Rate Blood Pressure Pulse Oximetry 95 Oxygen Delivery Room Air Room Air Fraction of Inspired Oxygen 21 05/20/25 08:04 05/20/25 10:00 05/20/25 11:58 Temperature 98.4 F 98.5 F Pulse Rate 63 64 64 Respiratory Rate 18 20 Blood Pressure 163/79 H 141/76 H Pulse Oximetry 94 97 Oxygen Delivery Fraction of Inspired Oxygen Exam 2 Const: General: cooperative and healthy appearing Resp: Effort & Inspection: normal respiratory effort and able to speak in complete sentences Auscultation: clear to auscultation bilaterally Cardio: Rate: regular rate Rhythm: regular rhythm GI: Inspection: normal to inspection GI Palp: No No hepatosplenomegaly present Auscultation: normal bowel sounds Rectal Exam: deferred Skin: General skin exam: normal color Psych: Appearance: grossly normal Mental Status: mental status grossly normal Results Labs 05/20/25 03:56 05/20/25 03:56 Labs: Short CBC 05/20/25 Range/Units 03:56 WBC 12.3 H (4.5-10.0) K/mm3 Hgb 15.3 (14.0-18.0) g/dL Hct 45.9 (42.0-52.0) % Plt Count 186 (150-375) k/mm3 BMP 05/20/25 03:56 Sodium 134 L Potassium 3.8 Chloride 102 Carbon Dioxide 25 BUN 12 Creatinine 0.84 Glucose 115 H Calcium 9.0 Liver Function 05/20/25 Range/Units 03:56 Total Bilirubin 1.6 H (0.2-1.3) mg/dL AST 34 (17-59) U/L ALT 33 (6-50) U/L Alkaline Phosphatase 55 (38-126) U/L Albumin 4.1 (3.5-5.1) g/dL
[2025-05-20] MEDS: PIPERACILLIN/TAZOBACTAM SOD 3.375 GM in SODIUM CHLORIDE 0.9% IV 50 ML 100 ML IVPB ×2 (16:22→21:23)
[2025-05-20] MEDS: PANTOPRAZOLE SODIUM IV 40 MG VIAL IV PUSH (21:22)
[2025-05-21] VITALS (9 sets, daily range): BP systolic 100–156; BP diastolic 62–88; PULSE 80–109; RESP 16–20; TEMP 36.8–38.9; O2SAT 93–95
--- NOTE | 2025-05-21 01:37 | PC.NURSE ---
This patient, Harry Pathak, was transferred to [[id number] ] on 05/21/25 at 0137. Personal belongings sent with patient. Report given to [ Michelle lui]. Appropriate documentation sent with patient.
--- NOTE | 2025-05-21 01:38 | PC.NURSE ---
pt's Erica was notified of pt's transfer to room [id number]
[2025-05-21] MEDS: PIPERACILLIN/TAZOBACTAM SOD 3.375 GM in SODIUM CHLORIDE 0.9% IV 50 ML 100 ML IVPB ×4 (04:14→21:02)
[2025-05-21] MEDS: ATORVASTATIN 20 MG TABLET PO (08:36)
[2025-05-21] MEDS: ASPIRIN 81 MG CHEWABLE TABLET PO (08:37)
[2025-05-21] MEDS: ENOXAPARIN 40 MG/0.4 ML SYRINGE SUB-Q (08:37)
[2025-05-21] MEDS: PANTOPRAZOLE SODIUM IV 40 MG VIAL IV PUSH ×2 (08:39→20:53)
[2025-05-21] MEDS: DOXYCYCLINE IV 100 MG in SODIUM CHLORIDE 0.9% IV 100 ML IVPB ×2 (11:53→22:08)
[2025-05-21] MEDS: ACETAMINOPHEN 325 MG TABLET 650 MG PO ×2 (12:04→20:50)
--- NOTE | 2025-05-21 13:00 | PM.IMPN ---
Progress Note: A&P Assessment and Plan (1) Chest pain: Code(s): R07.9 - Chest pain, unspecified Status: Acute Plan Chest pain Troponin negative, CXR unremarkable ECHO showed normal EF with grade I diastolic dysfunction A1c 5.1, LDL 89 continue Aspirin, Lipitor Cardiology recommended outpatient stress test Fever of unknown origin Patient continues to have fever CRP, ESR, RA, HIV, ferritin, EBV, respiratory panel, Beta-glucan, Galactomannan, CT chest and AP showed Gastroduodenitis and possible mass EHCO showed normal exam JEAN CLAUDE ordered Blood culture negative, repeat blood culture Continue Zosyn, started on Doxycycline, Vancomycin and micafungin Gastroduodenitis with possible mass CT AP reviewed Continue PPI and Zosyn GI noted no EGD at this time Hypertension BP on presentation 204/96 now 141/76 On Lisinopril 5mg daily Bradycardia EKG showed sinus bradycardia HR 64 monitor DVT prophylaxis on Sq Lovenox DNR SDM: Erica Pathak Subjective Date/time seen: 05/21/25 13:00 Interval history: Still having recurrent fever Further workup ordered Review of Systems Review of Systems: All other systems were reviewed and negative except as noted in the HPI above Exam Narrative: General: alert and comfortable Eyes: EOMI, PERRLA ENNT External ears normal, Neck is supple, no masses, Respiratory systems: Clear to auscultation Cardiovascular S1, S2, normal rhythm, no murmur, rub, or gallop; no thrill or palpable murmurs on palpation. Gastrointestinal: soft, non-tender, and non-distended abdomen with no masses; BS present Skin: no rash, lesions, ulcerations, subcutaneous nodules or induration Musculoskeletal: no abnormality and no tenderness, normal ROM Neurologic: Alert and oriented x3, non focal Mental Status Exam: normal affect Objective Data Vital Signs Vital Signs: Vital Signs - 24 hr 05/20/25 16:38 05/20/25 19:45 05/20/25 20:00 Temperature 99.6 F 101.1 F H Pulse Rate 67 72 80 Respiratory Rate 22 H 21 H 20 Blood Pressure 150/85 H 153/79 H Pulse Oximetry 94 94 93 Oxygen Delivery Room Air Fraction of Inspired Oxygen 21 05/20/25 22:01 05/21/25 00:13 05/21/25 04:26 Temperature 99.8 F H 98.6 F Pulse Rate 70 80 89 Respiratory Rate 20 20 16 Blood Pressure 156/73 H 151/88 H Pulse Oximetry 93 93 93 Oxygen Delivery Room Air Fraction of Inspired Oxygen 05/21/25 12:00 05/21/25 12:04 Temperature 100.7 F H 100.7 F H Pulse Rate Respiratory Rate Blood Pressure Pulse Oximetry Oxygen Delivery Fraction of Inspired Oxygen Intake/Output Intake/Output: Intake & Output 05/18/25 05/19/25 05/20/25 05/21/25 23:59 23:59 23:59 23:59 Intake Total 730 1870 840 Output Total 1475 1999 Balance -745 130 840 Meds/Results Medications: Active Medications Generic Name Dose Route Start Last Admin Trade Name Freq PRN Reason Stop Dose Admin Acetaminophen 650 mg 05/19/25 08:14 05/21/25 12:04 Acetaminophen 325 Mg Tablet PO 650 mg Q4H PRN Administration Mild Pain (1-3) or Fever Aspirin 81 mg 05/20/25 08:00 05/21/25 08:37 Aspirin 81 Mg Chewable Tablet PO 81 mg DAILY@0800 DOROTHY Administration Atorvastatin Calcium 20 mg 05/20/25 09:00 05/21/25 08:36 Atorvastatin 20 Mg Tablet PO 20 mg DAILY DOROTHY Administration Enoxaparin Sodium 40 mg 05/20/25 09:00 05/21/25 08:37 Enoxaparin 40 Mg/0.4 Ml Syringe SUB-Q 40 mg DAILY DOROTHY Administration Hydrochlorothiazide 12.5 mg 05/21/25 09:00 05/21/25 08:39 Hydrochlorothiazide 12.5 Mg Capsule PO 12.5 mg QAM DOROTHY Administration Piperacillin Sod/Tazobactam 50 mls @ 100 mls/hr 05/20/25 10:00 05/21/25 09:55 Sod 3.375 gm/ Sodium Chloride IVPB 100 mls/hr Q6H DOROTHY Administration Doxycycline Hyclate 100 mg/ 100 mls @ 100 mls/hr 05/21/25 10:45 05/21/25 11:53 Sodium Chloride IVPB 100 mls/hr Q12H DOROTHY Administration Lisinopril 5 mg 05/20/25 12:50 05/21/25 08:37 Lisinopril 5 Mg Tablet PO 5 mg QAM DOROTHY Administration Pantoprazole Sodium 40 mg 05/20/25 09:50 05/21/25 08:39 Pantoprazole Sodium Iv 40 Mg Vial IV PUSH 40 mg Q12HR DOROTHY Administration Radiology Results: ITS Impressions Chest X-Ray 05/19/25 05:48 Impression: Clear lungs. Chest/Abdomen/Pelvis CT 05/20/25 08:33 IMPRESSION: Diffuse wall thickening and mucosal hyperenhancement of the distal stomach and proximal duodenum. Findings are concerning for gastroduodenitis. Possible malignancy cannot be excluded.
[2025-05-21] MEDS: MICAFUNGIN SODIUM 100 MG in SODIUM CHLORIDE 0.9% IV 100 ML IVPB (14:46)
[2025-05-21 15:32] LABS: HIV 1/2 Ab P24 Ag Result Negative (Negative)
[2025-05-21] MEDS: VANCOMYCIN 1,500 MG/NS 500 ML 1,500 MG/500 ML BAG 250 MG IVPB (15:52)
[2025-05-21 16:03] LABS: CRP 19.4 mg/dL (<1.0)
[2025-05-21 16:22] LABS: Ferritin 317.00 ng/mL (11.1-264)
[2025-05-21] MEDS: CALCIUM CARBONATE (TUMS) 500 MG (200 MG ELEMENTAL) PO (17:37)
[2025-05-21 17:38] LABS: MRSA (PCR) NOT DETECTED (NOT DETECTE)
[2025-05-21 21:44] LABS: Influenza A QL RT-PCR Negative (Negative); Influenza B QL RT-PCR Negative (Negative); RSV RNA, RT-PCR Negative (Negative); SARS-CoV-2 RNA PCR Negative (Negative)
[2025-05-22 02:56] VITALS: TEMP 37.7
[2025-05-22] MEDS: ACETAMINOPHEN 325 MG TABLET 650 MG PO (02:56)
[2025-05-22 03:56] VITALS: TEMP 37.3
[2025-05-22 04:23] VITALS: BP 138/76; PULSE 74; RESP 18; TEMP 37.3; O2SAT 96
[2025-05-22] MEDS: PIPERACILLIN/TAZOBACTAM SOD 3.375 GM in SODIUM CHLORIDE 0.9% IV 50 ML 100 ML IVPB ×2 (04:25→11:45)
[2025-05-22 06:17] LABS: Hematocrit 42.8 % (42.0-52.0); Hemoglobin 14.0 g/dL (14.0-18.0); Immature Granulocyte Percent A 0.5 % (0-0.5); Lymphocytes Absolute Auto 1.47 K/mm3 (0.9-3.2); Mean Corpuscular HGB Conc 32.7 g/dl (32-36); Mean Corpuscular Hemoglobin 29.9 pg (26-34); Mean Corpuscular Volume 91.3 fl (80-100); Nucleated Red Blood Cells Absolute Auto 0.000 K/mm3 (0.0-0.012); Nucleated Red Blood Cells Perc 0.0 % (0.0-0.2); Platelet Count Result 162 k/mm3 (150-375); Red Blood Count 4.69 M/mm3 (4.6-6.20); White Blood Count 12.8 K/mm3 (4.5-10.0)
[2025-05-22 06:26] LABS: Alanine Aminotransferase 32 U/L (6-50); Albumin Level 3.5 g/dL (3.5-5.1); Alkaline Phosphatase 58 U/L (38-126); Anion Gap 9 mmol/L (4-12); Aspartate Amino Transferase 36 U/L (17-59); Bilirubin,Total 3.0 mg/dL (0.2-1.3); Blood Urea Nitrogen 12 mg/dL (9-20); Calcium 8.7 mg/dL (8.4-10.2); Carbon Dioxide 23 mmol/L (22-30); Chloride 101 mmol/L (98-107); Estimated CRCL calculation 52 ml/min; Estimated Glomerular Filt Rate > 60; Glucose 107 mg/dL (65-110); Magnesium 1.9 mg/dL (1.6-2.3); Potassium 3.6 mmol/L (3.4-5.0); Sodium 133 mmol/L (137-145); Total Protein 6.6 g/dL (6.3-8.2)
[2025-05-22] MEDS: VANCOMYCIN 1,500 MG/NS 500 ML 1,500 MG/500 ML BAG 250 MG IVPB (08:38)
[2025-05-22] MEDS: MORPHINE SULFATE (*CRX) 2 MG/ML INJ IV PUSH (10:22)
[2025-05-22] MEDS: DOXYCYCLINE IV 100 MG in SODIUM CHLORIDE 0.9% IV 100 ML IVPB (12:33)
--- NOTE | 2025-05-22 13:29 | PM.IMPN ---
Progress Note: A&P Assessment and Plan (1) Chest pain: Code(s): R07.9 - Chest pain, unspecified Status: Acute Plan Chest pain, resolved Troponin negative, CXR unremarkable ECHO showed normal EF with grade I diastolic dysfunction A1c 5.1, LDL 89 continue Aspirin, Lipitor Cardiology recommended outpatient stress test Fever of unknown origin Patient continues to have fever ESR 15, CRP 19.4, HIV, FLU, COvid and RSV negative EBV, Beta-glucan, Galactomannan RUQ US showed GB sludge with inflammatory wall changes CT chest and AP showed Gastroduodenitis and possible mass ECHO showed normal exam JEAN CLAUDE today Blood culture negative, repeat blood culture Continue Zosyn, Doxycycline, Vancomycin and micafungin Gall bladder sludge with inflamed wall Elevated bilirubin 3.0 No tenderness on exam Continue Abx Gi re-consulted Gastroduodenitis with possible mass CT AP reviewed Continue PPI and Zosyn GI noted no EGD at this time Hypertension BP on presentation 204/96 BP wnl On Lisinopril 5mg daily Bradycardia EKG showed sinus bradycardia HR 64 monitor DVT prophylaxis on Sq Lovenox DNR SDM: Erica Pathak Subjective Date/time seen: 05/22/25 13:29 Interval history: Still having recurrent fever JEAN CLAUDE today and GI consulted for US GB changes Review of Systems Review of Systems: All other systems were reviewed and negative except as noted in the HPI above Exam Narrative: General: alert and comfortable Eyes: EOMI, PERRLA ENNT External ears normal, Neck is supple, no masses, Respiratory systems: Clear to auscultation Cardiovascular S1, S2, normal rhythm, no murmur, rub, or gallop; no thrill or palpable murmurs on palpation. Gastrointestinal: soft, non-tender, and non-distended abdomen with no masses; BS present Skin: no rash, lesions, ulcerations, subcutaneous nodules or induration Musculoskeletal: no abnormality and no tenderness, normal ROM Neurologic: Alert and oriented x3, non focal Mental Status Exam: normal affect Objective Data Vital Signs Vital Signs: Vital Signs - 24 hr 05/21/25 13:30 05/21/25 14:00 05/21/25 20:00 Temperature 98.2 F 98.2 F Pulse Rate 109 H 92 Respiratory Rate 20 16 Blood Pressure 100/62 Pulse Oximetry 95 94 Oxygen Delivery Room Air Fraction of Inspired Oxygen 21 05/21/25 20:37 05/21/25 22:22 05/22/25 02:56 Temperature 102.1 F H 100.0 F H 99.8 F H Pulse Rate 92 Respiratory Rate 16 Blood Pressure 152/87 H Pulse Oximetry 94 Oxygen Delivery Fraction of Inspired Oxygen 05/22/25 03:56 05/22/25 04:23 Temperature 99.1 F 99.1 F Pulse Rate 74 Respiratory Rate 18 Blood Pressure 138/76 Pulse Oximetry 96 Oxygen Delivery Fraction of Inspired Oxygen Intake/Output Intake/Output: Intake & Output 05/19/25 05/20/25 05/21/25 05/22/25 23:59 23:59 23:59 23:59 Intake Total 730 1870 3670 600 Output Total 3635 6593 Balance -745 -130 3670 600 Meds/Results Medications: Active Medications Generic Name Dose Route Start Last Admin Trade Name Freq PRN Reason Stop Dose Admin Acetaminophen 650 mg 05/19/25 08:14 05/22/25 02:56 Acetaminophen 325 Mg Tablet PO 650 mg Q4H PRN Administration Mild Pain (1-3) or Fever Aspirin 81 mg 05/20/25 08:00 05/22/25 08:45 Aspirin 81 Mg Chewable Tablet PO Not Given DAILY@0800 [facility] Atorvastatin Calcium 20 mg 05/20/25 09:00 05/22/25 08:45 Atorvastatin 20 Mg Tablet PO Not Given DAILY [facility] Calcium Carbonate 200 mg 05/21/25 17:15 05/21/25 17:37 Calcium Carbonate (Tums) 500 Mg (200 Mg Elemental) PO 200 mg Q6H PRN Administration Indigestion Enoxaparin Sodium 40 mg 05/20/25 09:00 05/21/25 08:37 Enoxaparin 40 Mg/0.4 Ml Syringe SUB-Q 40 mg DAILY DOROTHY Administration Hydrochlorothiazide 12.5 mg 05/21/25 09:00 05/22/25 08:45 Hydrochlorothiazide 12.5 Mg Capsule PO Not Given QAM DOROTHY Piperacillin Sod/Tazobactam 50 mls @ 100 mls/hr 05/20/25 10:00 05/22/25 11:45 Sod 3.375 gm/ Sodium Chloride IVPB 100 mls/hr Q6H DOROTHY Administration Doxycycline Hyclate 100 mg/ 100 mls @ 100 mls/hr 05/21/25 10:45 05/22/25 12:33 Sodium Chloride IVPB 100 mls/hr Q12H DOROTHY Administration Micafungin Sodium 100 mg/ 100 mls @ 100 mls/hr 05/21/25 13:15 05/21/25 14:46 Sodium Chloride IVPB 100 mls/hr DAILY DOROTHY Administration Vancomycin HCl 1,500 mg in 500 mls @ 250 mls/hr 05/21/25 14:00 05/22/25 08:38 Vancomycin 1,500 Mg/Ns 500 Ml IVPB 250 mls/hr Q18H DOROTHY Administration Lisinopril 5 mg 05/20/25 12:50 05/22/25 08:45 Lisinopril 5 Mg Tablet PO Not Given QAM DOROTHY Morphine Sulfate 2 mg 05/22/25 08:51 05/22/25 10:22 Morphine Sulfate (*Crx) 2 Mg/Ml Inj IV PUSH 2 mg Q4H PRN Administration Pain Rated 7-10 Pantoprazole Sodium 40 mg 05/20/25 09:50 05/21/25 20:53 Pantoprazole Sodium Iv 40 Mg Vial IV PUSH 40 mg Q12HR DOROTHY Administration Perflutren Lipid Microsphere 0 ml 05/21/25 13:05 Perflutren Lipid Microspheres 1.5 Ml Vial Diluted To 10 Ml Total Volume IV PUSH 05/24/25 13:08 ONCE PRN adequate visualization Protocol Radiology Results: ITS Impressions Chest X-Ray 05/19/25 05:48 Impression: Clear lungs. Chest/Abdomen/Pelvis CT 05/20/25 08:33 IMPRESSION: Diffuse wall thickening and mucosal hyperenhancement of the distal stomach and proximal duodenum. Findings are concerning for gastroduodenitis. Possible malignancy cannot be excluded. Abdomen/Pelvis CT 05/22/25 09:35 IMPRESSION: Bilateral nonobstructing renal calculi. Gallbladder distention with surrounding inflammatory change adjacent to the hepatic flexure of the colon without mural thickening of the colon. Given this patient's normal alkaline phosphatase, discrete gallbladder pathology is unlikely. Hyperbilirubinemia and leukocytosis are of unknown etiology, based on today's examination. Simple cyst within the bilateral kidneys for which no further follow-up is needed. The mural thickening of the distal stomach and proximal duodenum is less prominent on today's study, likely secondary to gastric compression. Follow-up with gallbladder ultrasound may be of some benefit in order to confirm the CT findings and correlate it with this patient's history. Abdomen Ultrasound 05/22/25 12:03 IMPRESSION: Layering sludge within the gallbladder which demonstrates thickened nassar and surrounding inflammatory change within the liver, consistent with patient's recent CT examination. No common bile duct dilatation is appreciated. While abnormal, it is not likely that these findings in and of themselves would lead to hyperbilirubinemia. Sporadic elevations in transaminases have been identified in this patient within the last year, without elevation in bilirubin. Labs Labs: Laboratory Results - last 24 hr 05/21/25 05/21/25 05/21/25 13:46 16:08 20:59 WBC RBC Hgb Hct MCV MCH MCHC RDW Plt Count MPV Immature Gran % (Auto) Neut % (Auto) Lymph % (Auto) Winkler % (Auto) Eos % (Auto) Baso % (Auto) Lymph # (Auto) Winkler # (Auto) Eos # (Auto) Baso # (Auto) Abs Immat Gran (auto) Absolute Neuts (auto) Absolute Nucleated RBC Nucleated RBC % ESR 15 Sodium Potassium Chloride Carbon Dioxide Anion Gap BUN Creatinine Estim Creat Clear Calc Estimated GFR Glucose Calcium Magnesium Ferritin 317.00 H Total Bilirubin AST ALT Alkaline Phosphatase C-Reactive Protein 19.4 H Total Protein Albumin Nasal MRSA (PCR) Not detected Rheumatoid Factor 16.2 Chlamy pneumoniae PCR Cancelled Adenovirus (PCR) Cancelled B. pertussis DNA (PCR) Cancelled B.parapertussis DNA PCR Cancelled Coronavirus OC43 (PCR) Cancelled Coronavirus HKU1 (PCR) Cancelled Coronavirus 229E (PCR) Cancelled Coronavirus NL63 (PCR) Cancelled HIV 1&2 Ab/P24 Ag 4thGn Negative Human Metapneumovir PCR Cancelled Influenza A (RT-PCR) Negative Influenza A (H1) PCR Cancelled Influ A (H1/09) PCR Cancelled Influenza A (H3) PCR Cancelled Influenza Type A (PCR) Cancelled Influenza B (RT-PCR) Negative Influenza Type B (PCR) Cancelled M. pneumoniae (PCR) Cancelled Parainfluenza 1 (PCR) Cancelled Parainfluenza 2 (PCR) Cancelled Parainfluenza 3 (PCR) Cancelled Parainfluenza 4 (PCR) Cancelled RSV (RT-PCR) Negative RSV (PCR) Cancelled Entero/Rhino (PCR) Cancelled SARS-CoV-2 (PCR) Cancelled SARS-CoV-2 RNA (RT-PCR) Negative 05/22/25 05:12 WBC 12.8 H RBC 4.69 Hgb 14.0 Hct 42.8 MCV 91.3 MCH 29.9 MCHC 32.7 RDW 13.4 Plt Count 162 MPV 11.1 H Immature Gran % (Auto) 0.5 Neut % (Auto) 77.0 H Lymph % (Auto) 11.5 L Winkler % (Auto) 10.0 H Eos % (Auto) 0.5 Baso % (Auto) 0.5 Lymph # (Auto) 1.47 Winkler # (Auto) 1.3 H Eos # (Auto) 0.1 Baso # (Auto) 0.1 Abs Immat Gran (auto) 0.07 H Absolute Neuts (auto) 9.8 H Absolute Nucleated RBC 0.000 Nucleated RBC % 0.0 ESR Sodium 133 L Potassium 3.6 Chloride 101 Carbon Dioxide 23 Anion Gap 9 BUN 12 Creatinine 1.01 Estim Creat Clear Calc 52 Estimated GFR > 60 Glucose 107 Calcium 8.7 Magnesium 1.9 Ferritin Total Bilirubin 3.0 H AST 36 ALT 32 Alkaline Phosphatase 58 C-Reactive Protein Total Protein 6.6 Albumin 3.5 Nasal MRSA (PCR) Rheumatoid Factor Chlamy pneumoniae PCR Adenovirus (PCR) B. pertussis DNA (PCR) B.parapertussis DNA PCR Coronavirus OC43 (PCR) Coronavirus HKU1 (PCR) Coronavirus 229E (PCR) Coronavirus NL63 (PCR) HIV 1&2 Ab/P24 Ag 4thGn Human Metapneumovir PCR Influenza A (RT-PCR) Influenza A (H1) PCR Influ A (H1/09) PCR Influenza A (H3) PCR Influenza Type A (PCR) Influenza B (RT-PCR) Influenza Type B (PCR) M. pneumoniae (PCR) Parainfluenza 1 (PCR) Parainfluenza 2 (PCR) Parainfluenza 3 (PCR) Parainfluenza 4 (PCR) RSV (RT-PCR) RSV (PCR) Entero/Rhino (PCR) SARS-CoV-2 (PCR) SARS-CoV-2 RNA (RT-PCR)
[2025-05-22] MEDS: MICAFUNGIN SODIUM 100 MG in SODIUM CHLORIDE 0.9% IV 100 ML IVPB (13:42)
[2025-05-22 14:00] VITALS: BP 145/85; PULSE 76; RESP 18; TEMP 37.1; O2SAT 96
--- NOTE | 2025-05-22 14:30 | P.CONUR_ITS ---
Assessment and Plan Assessment and plan (1) Kidney stones: Code(s): N20.0 - Calculus of kidney Status: Acute Plan 80y old male with abdominal pain and incidental finding of kidney stones on ct. -CT AP reveals Multiple stones are identified within the bilateral kidneys. The largest on the right measures 6 mm, located within the lower pole. The largest on the left measures 10 mm, also located within the lower pole. No hydronephrosis is appreciated. Bilateral rounded foci of fluid attenuation within the bilateral kidneys: Exophytic from the upper pole on the right measuring 7.6 x 7.0 x 0.3 cm; Exophytic from the lower pole on the left measuring 5.3 x 6.0 x 6.3 cm, consistent with simple cysts for which no further follow-up is needed. The remainder of the bilateral kidneys are otherwise unremarkable, and without hydronephrosis -no urologic surgical intervention necessary at this time. -wbc slightly elevated. -Cr wnl -no urological symptoms. -Patient can follow up outpatient for further definitive stone management. -we will sign off. Urology Consult Note HPI Date Seen: 05/22/25 Requesting Physician: Eddie Dan MD Primary Care Provider: Terry Neri MD Consult Narrative Narrative: Harry Pathak is a 80 year old with no significant PMH wo presented to the ER on account of chest pain. Patient noted that he started having chest pain at about 3am, associated with SOB. 5/10 in intensity, non radiating. Denies any abd pain, vomiting, diarrhea, focal deficits. We were consulted for incidental finding of renal stones on CT. Review of Systems 2 Review of Systems: All systems reviewed & are unremarkable except as noted in HPI and below PMFSH Family History Family History Father Cancer Mother Diabetes mellitus Hypertension Sibling Lung cancer Brain cancer Social History Social History Smoking status: Never smoker Smokeless tobacco user: chewing tobacco Alcohol intake: current Drinks per week: 7 Alcohol use details: A glass of wine a day Substance use: never Substance use type: does not use Other substance usage details: Glass of wine with dinner Do You Feel Safe in your Home?: Yes Lack of Transportation: No Lack of Food: Never True Current Housing: I Have Housing Concerned About Future Housing: No Difficulty Paying Gas/Electric Bills: No Difficulty Paying for Meds: No Currently Unemployed: No Education: High School Diploma/GED Difficulty w/ Childcare or Family Care: No Living arrangements: with family Occupation/Education: retired Gender identity (if verbalized by the patient): Male Spiritual care concerns: No Agree to blood products: Yes Meds Home Medications and Allergies Home Medications ?Medication ?Instructions ?Recorded ?Confirmed ?Type Probiotic 1 cap BYMOUTH DAILY 10/17/22 05/19/25 History aspirin 81 mg tablet,delayed 81 mg PO DAILY 10/17/22 05/19/25 History release esomeprazole magnesium 40 mg 40 mg PO DAILY 10/17/22 05/19/25 History capsule,delayed release (Nexium) multivitamin 1 tablet PO DAILY 10/17/22 05/19/25 History Allergies Allergy/AdvReac Type Severity Reaction Status Date / Time No Known Drug Allergies Allergy Verified 05/19/25 08:19 Vital Signs Vital Signs - 24 hr 05/21/25 20:00 05/21/25 20:37 05/21/25 22:22 Temperature 102.1 F H 100.0 F H Pulse Rate 92 92 Respiratory Rate 16 16 Blood Pressure 152/87 H Pulse Oximetry 94 94 Oxygen Delivery Room Air Fraction of Inspired Oxygen 21 05/22/25 02:56 05/22/25 03:56 05/22/25 04:23 Temperature 99.8 F H 99.1 F 99.1 F Pulse Rate 74 Respiratory Rate 18 Blood Pressure 138/76 Pulse Oximetry 96 Oxygen Delivery Fraction of Inspired Oxygen Exam 2 Const: General: no acute distress Eyes: General: appearance normal, both eyes and all related structures Resp: Effort & Inspection: normal respiratory effort Skin: General skin exam: normal color Neuro: General: gait normal Speech: normal speech Psych: Speech and movement: Normal speech and movement present Results Labs 05/22/25 05:12 05/22/25 05:12 Labs: Short CBC 05/22/25 Range/Units 05:12 WBC 12.8 H (4.5-10.0) K/mm3 Hgb 14.0 (14.0-18.0) g/dL Hct 42.8 (42.0-52.0) % Plt Count 162 (150-375) k/mm3 [facility] 05/22/25 05:12 Sodium 133 L Potassium 3.6 Chloride 101 Carbon Dioxide 23 BUN 12 Creatinine 1.01 Glucose 107 Calcium 8.7 Liver Function 05/22/25 Range/Units 05:12 Total Bilirubin 3.0 H (0.2-1.3) mg/dL AST 36 (17-59) U/L ALT 32 (6-50) U/L Alkaline Phosphatase 58 (38-126) U/L Albumin 3.5 (3.5-5.1) g/dL
--- NOTE | 2025-05-22 18:20 | PM.TDS ---
Transfer Discharge Sum: Prov Provider Date of admission: 05/20/25 10:31 Primary care physician: Terry Neri MD Admitting clinician: Eddie Dan MD Consults: 05/20/25 Consult to Physician Routine Comment: Spoke with and notified him of consult Consulting Provider: Jhonathan Mcdowell family services coordinator/MD group to consult: Gi Reason for consultation: Gastroduodenitis ?mass Has provider been notified: Yes Consult to Physician Routine Comment: Called office and notified them of consult Consulting Provider: Shelby Silva family services coordinator/MD group to consult: Cardiology Reason for consultation: Chest pain Has provider been notified: Yes 05/22/25 Consult to Physician Routine Comment: Spoke to DR @3639 05/22 [facility] [place] Consulting Provider: Raf Kruger family services coordinator/MD group to consult: GI Reason for consultation: Inflammed gall bladder with elevated bilirubin Has provider been notified: Yes Consult to Physician Routine Comment: Spoke to office @6098 05/22 [facility] [place] Consulting Provider: Kwan Reyna family services coordinator/MD group to consult: Urology Reason for consultation: kidney stone Has provider been notified: Yes DS: Admitting Diagnosis Discharge Date 05/22/25 Admitting Diagnosis Chest pain DS: Discharge Diagnosis Discharge Diagnosis (1) Fever of unknown origin: Code(s): R50.9 - Fever, unspecified Status: Acute Transfer Discharge Sum: Med Medications Active and Home Medications: Home Medications Probiotic 1 cap BYMOUTH DAILY 10/17/22 [History Confirmed 05/19/25] aspirin 81 mg tablet,delayed release 81 mg PO DAILY 10/17/22 [History Confirmed 05/19/25] esomeprazole magnesium 40 mg capsule,delayed release (Nexium) 40 mg PO DAILY 10/17/22 [History Confirmed 05/19/25] multivitamin 1 tablet PO DAILY 10/17/22 [History Confirmed 05/19/25] Active Medications Acetaminophen (Acetaminophen 325 Mg Tablet) 650 mg PO Q4H PRN PRN Reason: Mild Pain (1-3) or Fever Last Admin: 05/22/25 02:56 Dose: 650 mg Aspirin (Aspirin 81 Mg Chewable Tablet) 81 mg PO DAILY@0800 COUNT INCLUDES THE [facility] Last Admin: 05/22/25 08:45 Dose: Not Given Atorvastatin Calcium (Atorvastatin 20 Mg Tablet) 20 mg PO DAILY COUNT INCLUDES THE [facility] Last Admin: 05/22/25 08:45 Dose: Not Given Calcium Carbonate (Calcium Carbonate (Tums) 500 Mg (200 Mg Elemental)) 200 mg PO Q6H PRN PRN Reason: Indigestion Last Admin: 05/21/25 17:37 Dose: 200 mg Enoxaparin Sodium (Enoxaparin 40 Mg/0.4 Ml Syringe) 40 mg SUB-Q DAILY COUNT INCLUDES THE [facility] Last Admin: 05/21/25 08:37 Dose: 40 mg Hydrochlorothiazide (Hydrochlorothiazide 12.5 Mg Capsule) 12.5 mg PO QAM COUNT INCLUDES THE [facility] Last Admin: 05/22/25 08:45 Dose: Not Given Piperacillin Sod/Tazobactam (Sod 3.375 gm/ Sodium Chloride) 50 mls @ 100 mls/hr IVPB Q6H COUNT INCLUDES THE [facility] Last Infusion: 05/22/25 12:15 Dose: Infused Doxycycline Hyclate 100 mg/ (Sodium Chloride) 100 mls @ 100 mls/hr IVPB Q12H COUNT INCLUDES THE [facility] Last Infusion: 05/22/25 13:33 Dose: Infused Micafungin Sodium 100 mg/ (Sodium Chloride) 100 mls @ 100 mls/hr IVPB DAILY COUNT INCLUDES THE [facility] Last Admin: 05/22/25 13:42 Dose: 100 mls/hr Vancomycin HCl (Vancomycin 1,500 Mg/Ns 500 Ml) 1,500 mg in 500 mls @ 250 mls/hr IVPB Q18H COUNT INCLUDES THE [facility] Last Infusion: 05/22/25 10:38 Dose: Infused Lisinopril (L[facility]op[facility] 5 Mg Tablet) [facility] [place] [facility] Admin: 05/22/25 08:45 Dose: Not Given Morphine Sulfate (Morphine Sulfate (*Crx) 2 Mg/Ml Inj) 2 mg IV PUSH Q4H PRN PRN Reason: Pain Rated 7-10 Last Admin: 05/22/25 10:22 Dose: 2 mg Pantoprazole Sodium (Pantoprazole Sodium Iv 40 Mg Vial) 40 mg IV PUSH Q12HR COUNT INCLUDES THE [facility] Last Admin: 05/22/25 09:15 Dose: Not Given Perflutren Lipid Microsphere (Perflutren Lipid Microspheres 1.5 Ml Vial Diluted To 10 Ml Total Volume) 0 ml IV PUSH ONCE PRN; Protocol PRN Reason: adequate visualization Stop: 05/24/25 13:08 Transfer Discharge Sum: Hosp Hospital Course Hospital course: 80 yo male with with no significant PMH wo presented to the ER on account of chest pain. Patient noted that he started having chest pain at about 3am, associated with SOB. 5/10 in intensity, non radiating. Denies any abd pain, vomiting, diarrhea, focal deficits. ER eval HR 55, RR 23, BP 204/96, 96% on room air Labs mostly unremarkable, troponin negative x2 CXR showed clear lungs amd EKG sinus bradycardia patient was initially managed for chest pain and troponin was negative, EKG acute changes, CXR unremarkable and ECHO showed normal systoluc function with no regional wall motion abnormalities. Cardiology was consulted and evaluated patient and recommended ASpirin adn lipitor and outpatient stress test. Howeve while int [facility] patient started having fever, CT chest and AP only showed Gastroduodenities and possible mass. GI was consulted evalauted adn noted not likely to be responsibel for fever and no endoscopic intervention recommended. Patient was initially started on Zosyn, pancultures obtained. Also placed on Protonix. however he continued to have persistent fever, further workup including, HIV, resp panel, were negative. Additionally, Doxycycline, Vanc and Micafungin were added. Bili was elevated to 3.0 US Abd showed Gb sludge with GB wall inflammation, although patient did not have abd tenderness on exam. GI was reconsulted for re-evaluatioin. Also CT AP done this morning showed bilateral renal stones, Urology was consulted and as expected no procedural intervetion needed and not likely to be source of fever. JEAN CLAUDE was scheduled for today initially however it was postponed to Sunday, patient's were disappointed and requested for transfer adn since we do no have ID, I decided to tansfer patient for higher level of . Patient was accepted at [facility] and transferred. Patient Condition: Stable Time Spent with Patient Time attestation: Total time spent providing and/or coordinating transfer services: DS: Data Data Completed and Pending Labs on day of discharge: Labs from last 24 hours 05/22/25 05/21/25 05:12 20:59 WBC 12.8 H RBC 4.69 Hgb 14.0 Hct 42.8 MCV 91.3 MCH 29.9 MCHC 32.7 RDW 13.4 Plt Count 162 MPV 11.1 H Immature Gran % (Auto) 0.5 Neut % (Auto) 77.0 H Lymph % (Auto) 11.5 L Esmeralda % (Auto) 10.0 H Eos % (Auto) 0.5 Baso % (Auto) 0.5 Lymph # (Auto) 1.47 Esmeralda # (Auto) 1.3 H Eos # (Auto) 0.1 Baso # (Auto) 0.1 Abs Immat Gran (auto) 0.07 H Absolute Neuts (auto) 9.8 H Absolute Nucleated RBC 0.000 Nucleated RBC % 0.0 Sodium 133 L Potassium 3.6 Chloride 101 Carbon Dioxide 23 Anion Gap 9 BUN 12 Creatinine 1.01 Estim Creat Clear Calc 52 Estimated GFR > 60 Glucose 107 Calcium 8.7 Magnesium 1.9 Total Bilirubin 3.0 H AST 36 ALT 32 Alkaline Phosphatase 58 Total Protein 6.6 Albumin 3.5 Chlamy pneumoniae PCR Cancelled Adenovirus (PCR) Cancelled B. pertussis DNA (PCR) Cancelled B.parapertussis DNA PCR Cancelled Coronavirus OC43 (PCR) Cancelled Coronavirus HKU1 (PCR) Cancelled Coronavirus 229E (PCR) Cancelled Coronavirus NL63 (PCR) Cancelled Human Metapneumovir PCR Cancelled Influenza A (RT-PCR) Negative Influenza A (H1) PCR Cancelled Influ A (H1/09) PCR Cancelled Influenza A (H3) PCR Cancelled Influenza Type A (PCR) Cancelled Influenza B (RT-PCR) Negative Influenza Type B (PCR) Cancelled M. pneumoniae (PCR) Cancelled Parainfluenza 1 (PCR) Cancelled Parainfluenza 2 (PCR) Cancelled Parainfluenza 3 (PCR) Cancelled Parainfluenza 4 (PCR) Cancelled RSV (RT-PCR) Negative RSV (PCR) Cancelled Entero/Rhino (PCR) Cancelled SARS-CoV-2 (PCR) Cancelled SARS-CoV-2 RNA (RT-PCR) Negative Preliminary micro results at discharge 05/20/25 08:08 Blood Culture - Preliminary Blood 05/20/25 08:16 Blood Culture - Preliminary Blood
[2025-05-26 08:08] LABS: Clinical Relevance Notes (.); Fungitell Value <31.25 pg/mL (.); Interpretation Notes (.)
[2025-05-26 11:08] LABS: Epstein-Barr Virus RT PCR, CSF Negative (Negative)
== END 2025-05-22 17:59 | disposition short-term general hospital (02) | DRG 313 ==
LOC: ANHED 08:05 → ANHIMU 08:43 → ANH3MEDSUR 05-21 01:36
PROVIDERS: Emergency Medicine; Admitting Provider Internal Medicine; Emergency Provider Emergency Medicine; PCP Family Medicine; Visit Provider Internal Medicine
DX: R07.9 Chest pain, unspecified (principal); R50.9 Fever, unspecified; I16.0 Hypertensive urgency; N20.0 Calculus of kidney; K29.90 Gastroduodenitis, unspecified, without bleeding; R00.1 Bradycardia, unspecified; R93.89 Abnormal findings on diagnostic imaging of other specified body structures; F41.9 Anxiety disorder, unspecified; Z66 Do not resuscitate
CPT/HCPCS: 36415; 71045; 71260; 74176; 74177; 76705; 80053; 80061; 82728; 83036; 83605; 83690; 83735; 84484; 85025; 85610; 85652; 85730; 86140; 86430; 86606; 86703; 87040; 87449; 87637; 87641; 87798; 93005; 99285; A9270; C8929; G0432; J1650; J2248; J2270; J2470; J2543; J3373; Q9957; Q9967